=== PATIENT | male | born 1945 | race African-American/Black ===

== ENCOUNTER 2017-08-06 23:25 | Inpatient (IN) | payer OTHER, MEDICARE ==
[~2017-08-06] VITALS: Ht 190.5 cm; Wt 90.6 kg
[~2017-08-06 23:25] MED LIST: AML5T PO; ASP81EC PO; ATOR20TA50 PO; CARV6.2551 PO; CLON0.1T PO; FURO20TA3 PO; HYDR25TA35 PO; POT20T PO
[2017-08-06] MEDS ORDERED: cloNIDine HCL 0.1 MG TAB ONE (23:43)
[2017-08-06] MEDS ORDERED: cloNIDine HCL 0.1 MG TAB PO ONE (23:45)
[2017-08-06 23:59] LABS: Basophils # (auto) 0.1 uL; Basophils % (auto) 0.9 % (0.0-2.0); Eosinophils # (auto) 0 uL; Eosinophils % (auto) 0.5 % (0.0-7.0); Hematocrit 38.9 % (41.0-53.0); Hemoglobin 12.8 g/dL (13.5-17.5); Lymphocytes # (auto) 1.3 uL; Lymphocytes % (auto) 17.7 % (10.0-50.0); Mean Corpuscular Hemoglobin 29.3 pg (28.0-32.0); Mean Corpuscular Hgb Conc. 32.8 g/dL (32.0-36.0); Mean Corpuscular Volume 89.5 fL (80.0-100.0); Monocytes # (auto) 0.7 uL; Monocytes % (auto) 9.9 % (0.0-12.0); Neutrophils # (auto) 5.1 uL; Nucleated Red Blood Cells % 0.1 %; Platelet Count (auto) 181 10^3/uL (140-450); Red Blood Cells 4.35 10^6/uL (4.5-5.90); Red Cell Distribution Width 16.2 % (11.8-14.3); White Blood Cell 7.3 10^3/uL (4.4-10.8)
[2017-08-07] MEDS ORDERED: LABETALOL HCL 200 MG TAB PO ONE
[2017-08-07 00:15] LABS: Albumin 3.1 g/dL (3.4-5.0); Potassium 3.2 mmol/L (3.5-5.1)
[2017-08-07 00:17] LABS: BUN/Creatinine Ratio 17.1
[2017-08-07 00:22] LABS: Bilirubin, Total 1.5 mg/dL (0.2-1.0); Total Protein 6.3 g/dL (6.4-8.2)
[2017-08-07] MEDS ORDERED: HYDROcodone-ACET 10/325MG TAB PO ONE (01:45)
[2017-08-07] MEDS ORDERED: cloNIDine HCL 0.1 MG TAB PO ONE (02:00)
[2017-08-07 02:39] LABS: Urine Bacteria FEW /hpf (None Seen); Urine Blood Negative /uL (Negative); Urine Hyaline Cast FEW /lpf (0 - 2); Urine Specific Gravity 1.015 (1.001-1.035); Urine WBC <1 /hpf (0 - 3)
[2017-08-07] MEDS: NICARDIPINE 25MG/250ML BAG KIT 250 ML IV SCH ×3 (03:22→12:56)
[2017-08-07] MEDS ORDERED: POTASSIUM CHL 20 Meq TABLET PO ONE ×2 (05:00→13:15)
[2017-08-07] MEDS ORDERED: MORPHINE SULFATE 8mg/ml INJ SDV IV PRN ×2 (08:30→13:15)
[2017-08-07] MEDS ORDERED: ONDANSETRON HCL 4 MG/2 ML VIAL IV PRN (08:30)
[2017-08-07] MEDS ORDERED: HYDROcodone-ACET 5/325MG TAB PO PRN (08:30)
[2017-08-07] MEDS ORDERED: ACETAMINOPHEN 500 MG TAB PO PRN (08:30)
[2017-08-07] MEDS ORDERED: NITROGLYCERIN 0.4 MG SL TAB SL PRN (08:30)
[2017-08-07 08:59] LABS: Alcohol, Urine < 3.0 mg/dL (0-5); Amphetamine Screen, Urine NEGATIVE (NEGATIVE); Barbiturate Scree,Urine NEGATIVE (NEGATIVE); Benzodiazephine Screen, Urine NEGATIVE (NEGATIVE); Cannabinoid Screen, Urine POSITIVE (NEGATIVE); Cocaine Screen, Urine NEGATIVE (NEGATIVE); Opiate Scree,Urine NEGATIVE (NEGATIVE); Phencyclidine Screen, Urine NEGATIVE (NEGATIVE)
[2017-08-07 09:10] LABS: Basophils # (auto) 0.1 uL; Basophils % (auto) 0.8 % (0.0-2.0); Eosinophils # (auto) 0.1 uL; Eosinophils % (auto) 1.3 % (0.0-7.0); Hematocrit 38.5 % (41.0-53.0); Hemoglobin 12.9 g/dL (13.5-17.5); Lymphocytes # (auto) 1.5 uL; Lymphocytes % (auto) 20.8 % (10.0-50.0); Mean Corpuscular Hemoglobin 29.9 pg (28.0-32.0); Mean Corpuscular Hgb Conc. 33.6 g/dL (32.0-36.0); Mean Corpuscular Volume 88.9 fL (80.0-100.0); Monocytes # (auto) 0.9 uL; Monocytes % (auto) 12.2 % (0.0-12.0); Neutrophils # (auto) 4.5 uL; Neutrophils % (auto) 64.9 % (37.0-80.0); Platelet Count (auto) 186 10^3/uL (140-450); Red Blood Cells 4.33 10^6/uL (4.5-5.90); Red Cell Distribution Width 16.4 % (11.8-14.3)
[2017-08-07 09:23] LABS: INR 1.05 (0.9-1.15); Partial Thromboplastin Time 29.5 sec (23.78-33.04); Prothrombin Time 11.2 sec (9.27-12.13)
[2017-08-07] MEDS: CARVEDILOL 3.125 MG TAB PO SCH ×2 (09:28→22:06)
[2017-08-07] MEDS: cloNIDine HCL 0.1 MG TAB PO SCH ×3 (09:28→22:07)
[2017-08-07] MEDS: FUROSEMIDE 20 MG TAB PO SCH (09:28)
[2017-08-07 09:36] LABS: BUN/Creatinine Ratio 16.4; Calcium 7.8 mg/dL (8.5-10.1)
[2017-08-07] MEDS ORDERED: amLODIPine BESYLATE 5 MG TAB PO ONE (13:15)
[2017-08-07] MEDS: hydrALAZINE HCL 25 MG TAB PO SCH ×2 (13:31→22:06)
[2017-08-07] MEDS: cloNIDine HCL 0.1 MG TAB PO PRN (16:55)
[2017-08-07 19:00] VITALS: BP 175/103
[2017-08-07 20:00] VITALS: BP 175/103
[2017-08-07 22:00] VITALS: BP 165/60
[2017-08-07] MEDS: ATORVASTATIN 20 MG TAB PO SCH (22:05)
[2017-08-07 22:45] VITALS: BP 175/103
[2017-08-08 05:52] VITALS: BP 164/97
[2017-08-08] MEDS: hydrALAZINE HCL 25 MG TAB PO SCH ×3 (05:57→22:51)
[2017-08-08 06:36] LABS: Basophils # (auto) 0 uL; Basophils % (auto) 0.6 % (0.0-2.0); Eosinophils # (auto) 0.1 uL; Eosinophils % (auto) 1.1 % (0.0-7.0); Hematocrit 41.2 % (41.0-53.0); Hemoglobin 13.9 g/dL (13.5-17.5); Lymphocytes % (auto) 14.5 % (10.0-50.0); Mean Corpuscular Hgb Conc. 33.6 g/dL (32.0-36.0); Mean Corpuscular Volume 89.3 fL (80.0-100.0); Monocytes # (auto) 0.7 uL; Monocytes % (auto) 10.1 % (0.0-12.0); Neutrophils # (auto) 5.3 uL; Neutrophils % (auto) 73.7 % (37.0-80.0); Nucleated Red Blood Cells % 0.1 %; Platelet Count (auto) 209 10^3/uL (140-450); Red Blood Cells 4.62 10^6/uL (4.5-5.90); Red Cell Distribution Width 15.5 % (11.8-14.3); White Blood Cell 7.2 10^3/uL (4.4-10.8)
[2017-08-08 07:11] LABS: Potassium 3.8 mmol/L (3.5-5.1)
[2017-08-08 07:23] LABS: BUN/Creatinine Ratio 12.2; Calcium 8.3 mg/dL (8.5-10.1)
[2017-08-08 09:00] VITALS: BP 159/110
[2017-08-08] MEDS: POTASSIUM CHL 10 Meq TABLET PO SCH (10:39)
[2017-08-08] MEDS: FUROSEMIDE 20 MG TAB PO SCH (10:40)
[2017-08-08] MEDS: CARVEDILOL 3.125 MG TAB PO SCH ×2 (10:42→22:56)
[2017-08-08] MEDS: amLODIPine BESYLATE 5 MG TAB PO SCH (10:43)
[2017-08-08] MEDS: cloNIDine HCL 0.1 MG TAB PO SCH ×2 (10:45→22:50)
[2017-08-08 13:00] VITALS: BP 151/81
[2017-08-08 17:00] VITALS: BP 143/79
[2017-08-08 22:00] VITALS: BP 158/88
[2017-08-08] MEDS: ATORVASTATIN 20 MG TAB PO SCH (22:51)
[2017-08-09] VITALS (7 sets, daily range): BP systolic 139–193; BP diastolic 65–94
[2017-08-09] MEDS: hydrALAZINE HCL 25 MG TAB PO SCH ×3 (05:37→22:19)
[2017-08-09 07:08] LABS: INR 1.01 (0.9-1.15); Partial Thromboplastin Time 30.4 sec (23.78-33.04); Prothrombin Time 10.8 sec (9.27-12.13)
[2017-08-09] MEDS: POTASSIUM CHL 10 Meq TABLET PO SCH (09:36)
[2017-08-09] MEDS: amLODIPine BESYLATE 5 MG TAB PO SCH (09:37)
[2017-08-09] MEDS: FUROSEMIDE 20 MG TAB PO SCH (09:37)
[2017-08-09] MEDS: cloNIDine HCL 0.1 MG TAB PO SCH ×2 (09:40→22:23)
[2017-08-09] MEDS: CARVEDILOL 3.125 MG TAB PO SCH ×2 (09:40→22:20)
[2017-08-09] MEDS ORDERED: LIDOCAINE 1% (LOCAL ANESTH.) PF 5ml SDV ONE (11:27)
[2017-08-09] MEDS ORDERED: SUCCINYLCHOLINE CHLORIDE 20 MG/ML 10ML VIAL IV ONE (11:28)
[2017-08-09] MEDS ORDERED: ceFAZolin 1GM/100ML 50 ML IV ONE (11:38)
[2017-08-09] MEDS ORDERED: ETOMIDATE (2MG/ML) 20ML VIAL IV ONE (11:43)
[2017-08-09] MEDS ORDERED: MIDAZOLAM HCL 1MG/1ML-2 ML VIAL ONE (11:43)
[2017-08-09] MEDS ORDERED: ROCURONIUM 10MG/ML 10ML VIAL IV ONE (11:43)
[2017-08-09] MEDS ORDERED: fentaNYL CITRATE 100 MCG/2 ML VL ONE (12:04)
[2017-08-09] MEDS ORDERED: hydrALAZINE HCL 20 MG/ML VL ONE (12:05)
[2017-08-09] MEDS ORDERED: hydrALAZINE HCL 20 MG/ML VL IV PRN (12:15)
[2017-08-09] MEDS ORDERED: ONDANSETRON HCL 4 MG/2 ML VIAL IV ONE (12:15)
[2017-08-09] MEDS ORDERED: METOCLOPRAMIDE HCL 5MG/ml INJ 2ml VIAL IV ONE (12:15)
[2017-08-09] MEDS ORDERED: GLYCOPYRROLATE 0.2 MG/ML 1ML VIAL ONE (12:42)
[2017-08-09] MEDS ORDERED: NEOSTIGMINE 1 MG/ML INJ (10mg/10ML VIAL) ONE ×2 (12:42→12:43)
[2017-08-09] MEDS: cloNIDine HCL 0.1 MG TAB PO PRN (15:27)
[2017-08-09] MEDS ORDERED: HYDROcodone-ACET 10/325MG TAB PO PRN (18:00)
[2017-08-09] MEDS: ATORVASTATIN 20 MG TAB PO SCH (22:19)
[2017-08-09] MEDS: HYDROcodone-ACET 10/325MG TAB PO PRN (23:29)
[2017-08-10] MEDS: cloNIDine HCL 0.1 MG TAB PO PRN ×2 (04:18→17:56)
[2017-08-10] MEDS: HYDROcodone-ACET 10/325MG TAB PO PRN ×2 (04:19→21:41)
[2017-08-10 05:25] VITALS: BP 175/86
[2017-08-10 06:33] LABS: Basophils # (auto) 0 uL; Basophils % (auto) 0.4 % (0.0-2.0); Eosinophils # (auto) 0.1 uL; Eosinophils % (auto) 0.7 % (0.0-7.0); Hematocrit 42.3 % (41.0-53.0); Hemoglobin 14.3 g/dL (13.5-17.5); Lymphocytes # (auto) 0.7 uL; Lymphocytes % (auto) 8.3 % (10.0-50.0); Mean Corpuscular Hgb Conc. 33.7 g/dL (32.0-36.0); Mean Corpuscular Volume 89.1 fL (80.0-100.0); Monocytes # (auto) 1.5 uL; Monocytes % (auto) 16.2 % (0.0-12.0); Neutrophils # (auto) 6.7 uL; Neutrophils % (auto) 74.4 % (37.0-80.0); Nucleated Red Blood Cells % 0.1 %; Platelet Count (auto) 205 10^3/uL (140-450); Red Blood Cells 4.74 10^6/uL (4.5-5.90); Red Cell Distribution Width 15.7 % (11.8-14.3)
[2017-08-10] MEDS: hydrALAZINE HCL 25 MG TAB PO SCH ×3 (06:44→21:28)
[2017-08-10 06:45] LABS: BUN/Creatinine Ratio 15.3; Calcium 8.2 mg/dL (8.5-10.1); Potassium 3.2 mmol/L (3.5-5.1)
[2017-08-10 09:00] VITALS: BP 158/88
[2017-08-10] MEDS ORDERED: fentaNYL CITRATE 100 MCG/2 ML VL IV ONE (10:00)
[2017-08-10] MEDS: POTASSIUM CHL 10 Meq TABLET PO SCH (10:05)
[2017-08-10] MEDS: cloNIDine HCL 0.1 MG TAB PO SCH ×2 (10:06→21:28)
[2017-08-10] MEDS: amLODIPine BESYLATE 5 MG TAB PO SCH (10:07)
[2017-08-10] MEDS: CARVEDILOL 3.125 MG TAB PO SCH ×2 (10:07→21:29)
[2017-08-10] MEDS: FUROSEMIDE 20 MG TAB PO SCH (10:07)
[2017-08-10] MEDS ORDERED: POTASSIUM CHL 20 Meq TABLET PO ONE (10:30)
[2017-08-10 13:00] VITALS: BP 129/68
[2017-08-10 17:00] VITALS: BP 169/74
[2017-08-10] MEDS: ATORVASTATIN 20 MG TAB PO SCH (21:28)
[2017-08-10 22:36] VITALS: BP 153/87
[2017-08-11 04:56] VITALS: BP 166/83
[2017-08-11 05:41] LABS: Potassium 3.5 mmol/L (3.5-5.1)
[2017-08-11 05:43] LABS: BUN/Creatinine Ratio 15.8
[2017-08-11] MEDS: hydrALAZINE HCL 25 MG TAB PO SCH ×3 (05:53→21:50)
[2017-08-11 08:37] VITALS: BP 143/92
[2017-08-11] MEDS: POTASSIUM CHL 10 Meq TABLET PO SCH (10:07)
[2017-08-11] MEDS: FUROSEMIDE 20 MG TAB PO SCH (10:07)
[2017-08-11] MEDS: CARVEDILOL 3.125 MG TAB PO SCH ×2 (10:08→21:51)
[2017-08-11] MEDS: amLODIPine BESYLATE 5 MG TAB PO SCH (10:08)
[2017-08-11] MEDS: cloNIDine HCL 0.1 MG TAB PO SCH ×2 (10:09→21:50)
[2017-08-11 11:38] VITALS: BP 121/63
[2017-08-11 16:51] VITALS: BP 130/74
[2017-08-11 18:38] VITALS: BP 154/73
[2017-08-11] MEDS: ATORVASTATIN 20 MG TAB PO SCH (21:51)
[2017-08-11] MEDS: HYDROcodone-ACET 10/325MG TAB PO PRN (21:52)
[2017-08-11 22:00] VITALS: BP 143/82
[2017-08-12 04:45] VITALS: BP 143/90
[2017-08-12] MEDS: hydrALAZINE HCL 25 MG TAB PO SCH ×2 (06:02→14:08)
[2017-08-12] MEDS: POTASSIUM CHL 10 Meq TABLET PO SCH (10:33)
[2017-08-12] MEDS: FUROSEMIDE 20 MG TAB PO SCH (10:33)
[2017-08-12] MEDS: amLODIPine BESYLATE 5 MG TAB PO SCH (10:34)
[2017-08-12] MEDS: CARVEDILOL 3.125 MG TAB PO SCH (10:34)
[2017-08-12] MEDS: cloNIDine HCL 0.1 MG TAB PO SCH (10:35)
[2017-08-12 13:09] VITALS: BP 130/77
[2017-08-12] MEDS ORDERED: DOCUSATE SOD 100 MG CAP PO ONE (16:30)
[2017-08-12 17:48] VITALS: BP 117/62
[2017-08-12 17:50] VITALS: BP 117/62
== END 2017-08-12 21:10 | disposition home or self-care (01) | DRG 350 ==
LOC: ER 23:25 → EDBD 23:25 → TELE 23:26 → TELE-CENTR 08-07 17:44
PROVIDERS: ADMIT Nurse Practitioner Family; ATTEND Internal Medicine
PROC: 0YQ50ZZ Repair Right Inguinal Region, Open Approach (ICD-10-PCS; principal; 2017-08-09 11:53)
DX: K40.30 Unilateral inguinal hernia, with obstruction, without gangrene, not specified as recurrent (principal); I50.31 Acute diastolic (congestive) heart failure; I21.4 Non-ST elevation (NSTEMI) myocardial infarction; I13.0 Hypertensive heart and chronic kidney disease with heart failure and stage 1 through stage 4 chronic kidney disease, or unspecified chronic kidney disease; K21.9 Gastro-esophageal reflux disease without esophagitis; I25.10 Atherosclerotic heart disease of native coronary artery without angina pectoris; N43.3 Hydrocele, unspecified; E87.6 Hypokalemia; I11.0 Hypertensive heart disease with heart failure; E78.5 Hyperlipidemia, unspecified; N18.2 Chronic kidney disease, stage 2 (mild); Z79.82 Long term (current) use of aspirin; Z82.49 Family history of ischemic heart disease and other diseases of the circulatory system; Z79.899 Other long term (current) drug therapy; Z71.3 Dietary counseling and surveillance
CPT/HCPCS: 36415; 71045; 74176; 76870; 80048; 80053; 80307; 81001; 83880; 84484; 85025; 85610; 85730; 86850; 86900; 86901; 93005; 93306; 96365; 97116; 97163; J0330; J0690; J2250

== ENCOUNTER 2018-07-05 08:01 | Emergency (ER) | payer MEDICARE, OTHER ==
[~2018-07-05] VITALS: Ht 177.8 cm; Wt 77.1 kg
[~2018-07-05 08:01] MED LIST changes: +HYDR-4296 PO; -HYDR25TA35 PO
[2018-07-05] MEDS ORDERED: cloNIDine HCL 0.1 MG TAB PO ONE ×2 (08:45→10:00)
[2018-07-05 08:46] LABS: Basophils # (auto) 0.1 uL; Basophils % (auto) 1.1 % (0.0-2.0); Eosinophils # (auto) 0.1 uL; Eosinophils % (auto) 0.7 % (0.0-7.0); Hemoglobin 12.1 g/dL (13.5-17.5); Lymphocytes % (auto) 24.6 % (10.0-50.0); Mean Corpuscular Hemoglobin 30.4 pg (28.0-32.0); Mean Corpuscular Hgb Conc. 33.6 g/dL (32.0-36.0); Mean Corpuscular Volume 90.5 fL (80.0-100.0); Monocytes # (auto) 0.8 uL; Monocytes % (auto) 10.3 % (0.0-12.0); Neutrophils # (auto) 5.1 uL; Neutrophils % (auto) 63.3 % (37.0-80.0); Nucleated Red Blood Cells % 0.1 %; Platelet Count (auto) 224 10^3/uL (140-450); Red Blood Cells 3.98 10^6/uL (4.5-5.90); Red Cell Distribution Width 15.6 % (11.8-14.3)
[2018-07-05 09:02] LABS: Calcium 8.5 mg/dL (8.5-10.1)
[2018-07-05 09:10] LABS: BUN/Creatinine Ratio 18.3; Bilirubin, Total 0.7 mg/dL (0.2-1.0); Total Protein 6.9 g/dL (6.4-8.2)
[2018-07-05 12:26] VITALS: BP 208/99
== END 2018-07-05 13:51 | disposition home or self-care (01) ==
LOC: ER 08:01 → EDBD 08:01 → ER 13:51
DX: I16.0 Hypertensive urgency (principal); I11.0 Hypertensive heart disease with heart failure; I50.9 Heart failure, unspecified; Z79.82 Long term (current) use of aspirin; Z79.899 Other long term (current) drug therapy; Z86.73 Personal history of transient ischemic attack (TIA), and cerebral infarction without residual deficits
CPT/HCPCS: 36415; 80053; 84484; 85025; 93005

== ENCOUNTER 2018-08-31 16:43 | Inpatient (IN) | payer MEDICARE, OTHER ==
[~2018-08-31] VITALS: Ht 182.9 cm; Wt 98.0 kg
[2018-08-31] MEDS ORDERED: NITROGLYCERIN 0.4 MG SL TAB SL PRN (17:45)
[2018-08-31] MEDS ORDERED: MORPHINE SULFATE 4 MG/ML SYR/VIAL IV PRN (17:45)
[2018-08-31] MEDS ORDERED: cefTRIAXone 1GM/50ML D5W 50 ML IV ONE (17:45)
[2018-08-31] MEDS ORDERED: TEMAZEPAM 15 MG CAP PO PRN (17:45)
[2018-08-31] MEDS ORDERED: MORPHINE SULF INJ 2 MG/ML SYRINGE 1ML IV PRN (17:45)
[2018-08-31] MEDS ORDERED: ONDANSETRON HCL 4 MG/2 ML VIAL IV PRN (17:45)
[2018-08-31] MEDS ORDERED: ALBUTEROL SULF 2.5 MG/0.5ML(0.5%) NEB SOLN NEB PRN (17:45)
[2018-08-31] MEDS ORDERED: DOCUSATE SOD 100 MG CAP PO PRN (17:45)
[2018-08-31] MEDS ORDERED: ALUM & MAG HYDROX-SIMETH LIQ(MAALOX) 30 ML PO PRN (17:45)
[2018-08-31 18:22] LABS: Basophils # (auto) 0.1 uL; Basophils % (auto) 1.4 % (0.0-2.0); Eosinophils # (auto) 0.1 uL; Hematocrit 36.1 % (41.0-53.0); Hemoglobin 12.2 g/dL (13.5-17.5); Lymphocytes # (auto) 1.3 uL; Mean Corpuscular Hemoglobin 30.3 pg (28.0-32.0); Mean Corpuscular Hgb Conc. 33.8 g/dL (32.0-36.0); Mean Corpuscular Volume 89.7 fL (80.0-100.0); Monocytes % (auto) 12.3 % (0.0-12.0); Neutrophils # (auto) 5.7 uL; Neutrophils % (auto) 69.3 % (37.0-80.0); Platelet Count (auto) 238 10^3/uL (140-450); Red Blood Cells 4.02 10^6/uL (4.5-5.90); Red Cell Distribution Width 14.1 % (11.8-14.3); White Blood Cell 8.2 10^3/uL (4.4-10.8)
[2018-08-31 18:41] LABS: Albumin 2.8 g/dL (3.4-5.0); Calcium 8.6 mg/dL (8.5-10.1); Magnesium 2.2 mg/dL (1.6-2.6); Potassium 3.9 mmol/L (3.5-5.1)
[2018-08-31 18:44] LABS: Cholesterol 127 mg/dL (< 200); Triglycerides 74 mg/dL (< 150)
[2018-08-31 18:46] LABS: Bilirubin, Total 0.7 mg/dL (0.2-1.0); HDL Cholesterol 43 mg/dL (40-59); LDL Cholesterol 77 mg/dL (< 100); Total Protein 6.7 g/dL (6.4-8.2)
[2018-08-31] MEDS: SODIUM CHLORIDE 0.9% 1,000 ML IV SCH (19:06)
[2018-08-31 19:56] LABS: Urine Bacteria NONE SEEN /hpf (None Seen); Urine Blood 1+ /uL (Negative); Urine Specific Gravity 1.021 (1.001-1.035); Urine WBC 32 /hpf (0 - 3); Urine WBC Clumps PRESENT /hpf (None Seen)
[2018-08-31 20:18] VITALS: BP 165/101
[2018-08-31] MEDS: ATORVASTATIN 20 MG TAB PO SCH (22:12)
[2018-08-31] MEDS: CARVEDILOL 12.5 MG TAB PO SCH (22:12)
[2018-08-31] MEDS: cloNIDine HCL 0.1 MG TAB PO SCH (22:13)
[2018-08-31] MEDS: hydrALAZINE HCL 25 MG TAB PO SCH (22:13)
[2018-08-31] MEDS ORDERED: cloNIDine HCL 0.1 MG TAB PO ONE (22:30)
[2018-09-01] VITALS (9 sets, daily range): BP systolic 116–208; BP diastolic 61–108
--- NOTE | 2018-09-01 01:40 | NUR ---
Telemetry admit from ER JENNIFER HA admitted to Telemetry unit. Patient oriented to Kel Stinson, primary RN, unit, room, bed, and unit policies regarding patient care and visiting hours. Pt oriented to self only, reoriented to place, time and situation. Patient now on continuous telemetry monitoring, tele box # [id number] and telemetry reading on arrival to unit is SB 50s. Patient's vs taken and recorded, weighed by bedscale and encouraged to call if they need something, call light within reach. POC reviewed, unable to comprehend teachings. Side rails up x2, bed in lowest locked position, bed alarm on. Wound photos taken and wound documentation paper signed and placed in wc box, mrsa swab sent to lab. Continue care. Note:
--- NOTE | 2018-09-01 02:09 | NUR ---
CALLED AND SPOKE TO DR ARTHUR REGARDING ELEVATED BP 208/108, RECEIVED NEW ORDER FOR CLONIDINE 0.2MG PO X1, ORDER ENTERED, WILL CARRY OUT. CONTINUE CARE.
[2018-09-01] MEDS ORDERED: cloNIDine HCL 0.1 MG TAB PO ONE (03:00)
[2018-09-01] MEDS: hydrALAZINE HCL 25 MG TAB PO SCH ×3 (06:10→21:56)
--- NOTE | 2018-09-01 07:01 | NUR ---
PRN MN TX NOT INDICATED AT THIS TIME. PT SLEEPING COMFORTABLE. PT ON RA, 96% O2 SATS, HR 58 BPM, RR18 BPM, BS ARE CLEAR TO AUSCULTATION, SKIN IS DRY AND WARM TO THE TOUCH. NO SOB OR ANY OTHER RESPIRATORY DISTRESS NOTICED. WILL CONTINUE TO MONITOR PT.
--- NOTE | 2018-09-01 07:20 | NUR ---
Opening Shift Note Assumed care of patient, patient asleep. No S/S of distress/SOB or pain. Will continue to monitor for changes Q1hr and PRN.
[2018-09-01 09:34] LABS: Basophils # (auto) 0.1 uL; Basophils % (auto) 1.1 % (0.0-2.0); Eosinophils # (auto) 0 uL; Eosinophils % (auto) 0.4 % (0.0-7.0); Hematocrit 36.7 % (41.0-53.0); Hemoglobin 12.2 g/dL (13.5-17.5); Lymphocytes # (auto) 1.6 uL; Lymphocytes % (auto) 16.7 % (10.0-50.0); Mean Corpuscular Hemoglobin 30.5 pg (28.0-32.0); Mean Corpuscular Hgb Conc. 33.3 g/dL (32.0-36.0); Mean Corpuscular Volume 91.3 fL (80.0-100.0); Monocytes # (auto) 1.3 uL; Monocytes % (auto) 13.2 % (0.0-12.0); Neutrophils # (auto) 6.7 uL; Neutrophils % (auto) 68.6 % (37.0-80.0); Platelet Count (auto) 226 10^3/uL (140-450); Red Blood Cells 4.01 10^6/uL (4.5-5.90); Red Cell Distribution Width 14.1 % (11.8-14.3); White Blood Cell 9.8 10^3/uL (4.4-10.8)
[2018-09-01] MEDS: CARVEDILOL 12.5 MG TAB PO SCH ×2 (10:00→21:55)
[2018-09-01] MEDS: ASPirin-EC 81 mg tab PO SCH (10:22)
[2018-09-01] MEDS: cefTRIAXone 1GM/50ML D5W 50 ML IV SCH (10:22)
[2018-09-01] MEDS: POTASSIUM CHL 20 Meq TABLET PO SCH (10:22)
[2018-09-01] MEDS: cloNIDine HCL 0.1 MG TAB PO SCH ×2 (10:22→21:54)
[2018-09-01] MEDS: amLODIPine BESYLATE 5 MG TAB PO SCH (10:23)
[2018-09-01] MEDS: LISINOPRIL 20 MG TAB PO SCH (10:23)
[2018-09-01] MEDS: ENOXAPARIN SOD 40 MG/0.4 ML SYRINGE SC SCH (10:23)
[2018-09-01] MEDS: SODIUM CHLORIDE 0.9% 1,000 ML IV SCH (10:24)
--- NOTE | 2018-09-01 12:30 | NUR ---
WOUND CARE NOTE: IN TO SEE PATIENT AT THIS TIME PER WOUND CARE CONSULT REQUEST. PATIENT WAS NOTED TO HAVE SKIN INTEGRITY ISSUES UPON ADMIT. WOUND PHOTOS TAKEN AT THAT TIME BY BEDSIDE NURSE FOR REFERENCE. PATIENT ADMITTED TO [facility] WITH DIAGNOSIS OF ALOC, HYPOVOLEMIA. PATIENT HAS CURRENT JEFFERSON SCORE OF 12. PATIENT IS MAX ASSIST FOR ALL OF HIS ADL'S, INCLUDING TURNING/REPOSITIONING. SPECIALTY AIR MATTRESS ORDERED. PATIENT TO BE PLACED, PENDING DELIVERY BY [facility]. PATIENT HAS MULTIPLE INTACT SCARS TO SACRUM. 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 MOISTURE BARRIER CREAM AND OPTIFOAM GENTLE SACRAL DRESSING APPLIED. BILATERAL HEELS HAS INTACT ESCHAR HEELS THAT ARE CHRONIC. NICHO FOAM BOOTS APPLIED. RECOMMEND: FREQUENT TURN SCHEDULE Q 2 HOURS, PRN CONDITION PERMITS, WITH PRESSURE REDISTRIBUTION USING PILLOWS/WEDGES, BID/PRN APPLICATION WITH MOISTURE BARRIER CREAM, OPTIFOAM GENTLE SACRAL DRESSING, SPECIALTY AIR MATTRESS, NICHO FOAM BOOTS, DIETARY CONSULT, SKIN/WOUND CARE PLAN, CONTINUED MONITORING BY WOUND CARE TEAM. Addendum: 09/01/18 at 1850 by Magdalena Callejas RN Amended: Links added.
--- NOTE | 2018-09-01 14:00 | NUR ---
Pt found with food from lunch still in mouth. Food suctioned out and Dr. Soriano notified. Orders for full liquid diet and swallow eval.
[2018-09-01 14:40] LABS: Albumin 2.4 g/dL (3.4-5.0); Calcium 8.4 mg/dL (8.5-10.1); Potassium 3.9 mmol/L (3.5-5.1)
[2018-09-01 14:43] LABS: BUN/Creatinine Ratio 21.4; Bilirubin, Total 0.8 mg/dL (0.2-1.0); Total Protein 6.2 g/dL (6.4-8.2)
[2018-09-01] MEDS: cloNIDine HCL 0.1 MG TAB PO PRN (17:52)
--- NOTE | 2018-09-01 19:03 | NUR ---
Respiratory note: ASSESSED PT FOR PRN TX. PT IS CURRENTLY ON ROOM AIR: HR 68, RR 18, SPO2 94%. MED NEB TX NOT INDICATED AT THIS TIME. PT SHOWS NO S/S OR DISTRESS. INFORMED PT IF SOB TO CONTACT RESPIRATORY FOR BREATHING TX. WILL CONTINUE TO MONITOR.
--- NOTE | 2018-09-01 20:00 | NUR ---
Opening Shift Note Assumed care of patient, awake and alert. No S/S of distress/SOB or pain. Instructed on POC and to call for assist PRN, will continue to monitor for changes Q1hr and PRN. SCDs in place. Bed in low position. Call light in reach. Alonzo Catheter intact draining to gravity clear yellow urine.
[2018-09-01] MEDS: ATORVASTATIN 20 MG TAB PO SCH (21:52)
--- NOTE | 2018-09-01 23:31 | NUR ---
Patient transferred to Air mattress delivered.
[2018-09-02] MEDS: SODIUM CHLORIDE 0.9% 1,000 ML IV SCH (03:26)
[2018-09-02 05:00] VITALS: BP 161/98
[2018-09-02] MEDS: hydrALAZINE HCL 25 MG TAB PO SCH ×2 (06:12→13:20)
[2018-09-02] MEDS: cloNIDine HCL 0.1 MG TAB PO PRN (06:16)
--- NOTE | 2018-09-02 07:20 | NUR ---
Opening Shift Note Assumed care of patient, awake and alert and oriented X 1. No S/S of distress/SOB or pain. Will continue to monitor for changes Q1hr and PRN.
[2018-09-02 08:00] VITALS: BP 163/93
[2018-09-02 08:26] VITALS: BP 163/93
[2018-09-02] MEDS: amLODIPine BESYLATE 5 MG TAB PO SCH (09:31)
[2018-09-02] MEDS: ASPirin-EC 81 mg tab PO SCH (09:31)
[2018-09-02] MEDS: cefTRIAXone 1GM/50ML D5W 50 ML IV SCH (09:31)
[2018-09-02] MEDS: POTASSIUM CHL 20 Meq TABLET PO SCH (09:32)
[2018-09-02] MEDS: CARVEDILOL 12.5 MG TAB PO SCH ×2 (09:32→21:58)
[2018-09-02] MEDS: cloNIDine HCL 0.1 MG TAB PO SCH ×2 (09:33→21:59)
[2018-09-02] MEDS: ENOXAPARIN SOD 40 MG/0.4 ML SYRINGE SC SCH (09:33)
[2018-09-02] MEDS: LISINOPRIL 20 MG TAB PO SCH ×2 (09:33→20:26)
--- NOTE | 2018-09-02 11:18 | NUR ---
SWALLOW EVALUATED. NURSING REPORTS SOME POCKETING DURING MEAL. PATIENT ABLE TO TOLERATE PUREE DIET TEXTURE WITH THIN LIQUIDS WITH NO OVERT SIGNS OR SYMPTOMS OF ASPIRATION. PATIENT HAS OWN LOWER TEETH. NURSING NOTIFIED.
[2018-09-02 13:00] VITALS: BP 142/84
--- NOTE | 2018-09-02 14:14 | NUR ---
NUTRITION CONSULT/ASSESSMENT NOTES Please refer to link notes of nutrition screen form filed under the intervention section of the plan of care for further details. Est. Needs: 2100 kcal to 2450 kcal (30-35 kcal/kgBW), 70 gms to 98 gms pro (1.0-1.4 gms/kgBW d/t severe hypoalbuminemia, wound healing). Will continue to monitor pertinent labs and reassess nutrient need prn Thank you for this consult. Addendum: 09/02/18 at [address] Amended: Links added.
[2018-09-02 17:06] VITALS: BP 158/89
--- NOTE | 2018-09-02 18:18 | NUR ---
Pharmacy recommendation Notified Dr. Soriano of pharmacy recommendation for antibiotics. MD reports he will review.
--- NOTE | 2018-09-02 19:40 | NUR ---
OPENING SHIFT NOTE RECEIVED REPORT FROM DAYSHIFT RN. PATIENT RESTING COMFORTABLY IN BED WITH EYES CLOSED. NO S/S OF DISTRESS OR SOB. NO PAIN NOTED OR REPORTED AT THIS TIME. PATIENT ALERT TO SELF, BEDREST ON AIR MATTRESS. UPDATED PATIENT ON POC, VERBALIZED UNDERSTANDING. BED LOCKED IN LOW POSITION, CALL LIGHT WITHIN REACH. WILL CONTINUE TO MONITOR PATIENT Q1HR AND PRN.
--- NOTE | 2018-09-02 19:51 | NUR ---
ASSESSED PT @ THIS TIME FOR PRN MED NEB TX. PT IS RESTING COMFORTABLY IN BED. HE STATES HIS BREATHING IS DOING FINE. CURRENTLY ON R/A SPO2 97%, HR 59, RR 18 AND BS ARE DIMINISHED T/O. NO DISTRESS NOTED. HE IS AWARE TO CALL IF HE FEELS SOB.
[2018-09-02] MEDS ORDERED: AZITHROMYCIN 200 MG/5 ML ORAL SUSP PO ONE (20:00)
[2018-09-02] MEDS: D5W/SOD CHL 0.45%/KCL 20MEQ 1,000 ML IV SCH (20:23)
[2018-09-02] MEDS: ATORVASTATIN 20 MG TAB PO SCH (21:57)
[2018-09-02 22:00] VITALS: BP 163/94
[2018-09-03 05:00] VITALS: BP 168/94
[2018-09-03] MEDS: amLODIPine BESYLATE 5 MG TAB PO SCH ×2 (06:39→17:57)
[2018-09-03] MEDS: LISINOPRIL 20 MG TAB PO SCH ×2 (06:40→17:56)
[2018-09-03 06:57] LABS: Basophils # (auto) 0.1 uL; Basophils % (auto) 0.8 % (0.0-2.0); Eosinophils # (auto) 0.1 uL; Eosinophils % (auto) 0.9 % (0.0-7.0); Hematocrit 36.2 % (41.0-53.0); Hemoglobin 12.1 g/dL (13.5-17.5); Lymphocytes # (auto) 1.5 uL; Lymphocytes % (auto) 19.8 % (10.0-50.0); Mean Corpuscular Hemoglobin 30.5 pg (28.0-32.0); Mean Corpuscular Hgb Conc. 33.4 g/dL (32.0-36.0); Mean Corpuscular Volume 91.4 fL (80.0-100.0); Monocytes # (auto) 0.9 uL; Monocytes % (auto) 11.8 % (0.0-12.0); Neutrophils # (auto) 5.2 uL; Neutrophils % (auto) 66.7 % (37.0-80.0); Nucleated Red Blood Cells % 0.1 %; Platelet Count (auto) 207 10^3/uL (140-450); Red Blood Cells 3.97 10^6/uL (4.5-5.90); Red Cell Distribution Width 13.9 % (11.8-14.3); White Blood Cell 7.8 10^3/uL (4.4-10.8)
[2018-09-03 08:00] VITALS: BP 177/98
[2018-09-03 08:23] VITALS: BP 177/98
[2018-09-03] MEDS: cefTRIAXone 1GM/50ML D5W 50 ML IV SCH (09:35)
[2018-09-03] MEDS: ASPirin-EC 81 mg tab PO SCH (09:35)
[2018-09-03] MEDS: ENOXAPARIN SOD 40 MG/0.4 ML SYRINGE SC SCH (09:35)
[2018-09-03] MEDS: cloNIDine HCL 0.1 MG TAB PO SCH ×2 (09:36→21:55)
[2018-09-03] MEDS: CARVEDILOL 12.5 MG TAB PO SCH ×2 (09:36→21:56)
[2018-09-03] MEDS: POTASSIUM CHL 20 Meq TABLET PO SCH (09:36)
[2018-09-03] MEDS ORDERED: AZITHROMYCIN 200 MG/5 ML ORAL SUSP PO ONE ×2 (10:00)
[2018-09-03 12:00] VITALS: BP 90/41
--- NOTE | 2018-09-03 13:30 | NUR ---
Respiratory note: PT ASSESSED FOR PRN MEDNEB TX. NO RESPIRATORY DISTRESS NOTED. SPO2 98% ON RA HR 67 RR 14 B/S CLEAR-DIMINISHED . PT AWARE TO HAVE RT PAGED IF THEY BECOME SOB.
[2018-09-03 17:00] VITALS: BP 173/86
[2018-09-03] MEDS: D5W/SOD CHL 0.45%/KCL 20MEQ 1,000 ML IV SCH (17:57)
--- NOTE | 2018-09-03 19:35 | NUR ---
OPENING SHIFT NOTE RECEIVED REPORT FROM DAYSHIFT RN. PATIENT RESTING COMFORTABLY IN BED WITH EYES CLOSED. NO S/S OF DISTRESS OR SOB. NO PAIN NOTED OR REPORTED AT THIS TIME. PATIENT ALERT TO SELF, BEDREST ON AIR MATTRESS. UPDATED PATIENT ON POC, REINFORCEMENT NEEDED. BED LOCKED IN LOW POSITION, CALL LIGHT WITHIN REACH. WILL CONTINUE TO MONITOR PATIENT Q1HR AND PRN.
[2018-09-03 21:43] VITALS: BP 149/96
[2018-09-03] MEDS: ATORVASTATIN 20 MG TAB PO SCH (21:56)
[2018-09-04] VITALS (7 sets, daily range): BP systolic 111–189; BP diastolic 59–106
[2018-09-04] MEDS ORDERED: MORPHINE SULFATE 4 MG/ML SYR/VIAL IV PRN (02:30)
[2018-09-04] MEDS ORDERED: MORPHINE SULF INJ 2 MG/ML SYRINGE 1ML IV PRN (02:45)
[2018-09-04] MEDS: cloNIDine HCL 0.1 MG TAB PO PRN (04:50)
[2018-09-04] MEDS: D5W/SOD CHL 0.45%/KCL 20MEQ 1,000 ML IV SCH ×2 (06:30→17:34)
[2018-09-04] MEDS: amLODIPine BESYLATE 5 MG TAB PO SCH ×2 (06:47→17:34)
[2018-09-04] MEDS: LISINOPRIL 20 MG TAB PO SCH ×2 (06:47→17:33)
[2018-09-04 06:58] LABS: Anion Gap 10 (5-15); Blood Urea Nitrogen 9 mg/dL (7-18); Calcium 8.1 mg/dL (8.5-10.1); Carbon Dioxide 22 mmol/L (21-32); Chloride 110 mmol/L (98-107); Glucose 86 mg/dL (74-106); Potassium 3.8 mmol/L (3.5-5.1); Sodium 142 mmol/L (136-145)
[2018-09-04 07:01] LABS: BUN/Creatinine Ratio 14.1; GFR African American 158 mL/min; GFR Non-African American 131 mL/min
[2018-09-04] MEDS: cefTRIAXone 1GM/50ML D5W 50 ML IV SCH (09:42)
[2018-09-04] MEDS: ASPirin-EC 81 mg tab PO SCH (09:43)
[2018-09-04] MEDS: ENOXAPARIN SOD 40 MG/0.4 ML SYRINGE SC SCH (09:43)
[2018-09-04] MEDS: POTASSIUM CHL 20 Meq TABLET PO SCH (09:43)
[2018-09-04] MEDS: CARVEDILOL 12.5 MG TAB PO SCH ×2 (09:44→21:53)
[2018-09-04] MEDS: cloNIDine HCL 0.1 MG TAB PO SCH ×2 (09:44→21:52)
[2018-09-04 15:17] LABS: Albumin 2.3 g/dL (3.4-5.0)
[2018-09-04 15:20] LABS: BUN/Creatinine Ratio 14.5; Bilirubin, Total 0.4 mg/dL (0.2-1.0)
--- NOTE | 2018-09-04 16:08 | NUR ---
APS Chiquis Johnson ph [phone] called and spoke to me thinking I was SS. Informed her I have not seen pt and that SS was Sudha Dunn and could be reached at ext [phone].
--- NOTE | 2018-09-04 16:48 | NUR ---
ASSESSED PT FOR PRN MED NEB TX, PT IN NO RESPIRATORY DISTRESS. HR 58 ON RA WITH SPO2 58% WITH DIMINISH BS. NO TX NEEDED AT THIS TIME. WILL CONTINUE TO MONITOR PT.
--- NOTE | 2018-09-04 18:47 | NUR ---
PRN MED NEB ASSESSMENT. PT DENIES SOB. NO DISTRESS NOTED AT THIS TIME. RA POX 96% HR 64 RR 16. BS CLEAR AND DIMINISHED. TX NOT GIVEN.
--- NOTE | 2018-09-04 19:30 | NUR ---
OPENING SHIFT NOTE RECEIVED REPORT FROM DAYSHIFT RN. PATIENT RESTING COMFORTABLY IN BED WITH EYES CLOSED. NO S/S OF DISTRESS OR SOB. NO PAIN NOTED OR REPORTED AT THIS TIME. PATIENT ALERT TO SELF AND PLACE, BEDREST ON AIR MATTRESS. UPDATED PATIENT ON POC, REINFORCEMENT NEEDED. BED LOCKED IN LOW POSITION, CALL LIGHT WITHIN REACH. WILL CONTINUE TO MONITOR PATIENT Q1HR AND PRN.
--- NOTE | 2018-09-04 21:15 | NUR ---
CALL FROM RADHA INFORMED PRIMARY RN OF POLICE ARRIVING AT HOME TO INSPECT CURRENT LIVING SITUATION. PER SHE STATES "THE POLICE JUST LEFT AND CHECKED OUT THE WHOLE HOUSE AND SAID EVERYTHING WAS GOOD. I HAVE ALL THE SUPPLIES I NEED FOR MY 'S CARE. I FEED HIM, BATHE HIM, CLEAN HIM, AND TAKE CARE OF HIM EVERYDAY. I HAVE EVERYTHING I NEED FOR HIM TO COME HOME SO I DO NOT WANT HIM TO GO TO A NURSING FACILITY." WILL CONTINUE TO MONITOR PATIENT.
[2018-09-04] MEDS: ATORVASTATIN 20 MG TAB PO SCH (21:53)
[2018-09-05 05:00] VITALS: BP 175/91
[2018-09-05] MEDS: amLODIPine BESYLATE 5 MG TAB PO SCH ×2 (06:20→17:37)
[2018-09-05] MEDS: LISINOPRIL 20 MG TAB PO SCH ×2 (06:20→17:38)
[2018-09-05 08:21] VITALS: BP 175/91
[2018-09-05 08:41] VITALS: BP 154/83
[2018-09-05] MEDS: POTASSIUM CHL 20 Meq TABLET PO SCH (09:32)
[2018-09-05] MEDS: cefTRIAXone 1GM/50ML D5W 50 ML IV SCH (09:32)
[2018-09-05] MEDS: ASPirin-EC 81 mg tab PO SCH (09:33)
[2018-09-05] MEDS: CARVEDILOL 12.5 MG TAB PO SCH ×2 (09:33→21:55)
[2018-09-05] MEDS: cloNIDine HCL 0.1 MG TAB PO SCH ×2 (09:34→21:54)
[2018-09-05] MEDS: D5W/SOD CHL 0.45%/KCL 20MEQ 1,000 ML IV SCH (09:37)
[2018-09-05] MEDS: ENOXAPARIN SOD 40 MG/0.4 ML SYRINGE SC SCH (09:56)
--- NOTE | 2018-09-05 10:21 | NUR ---
re-assessment APS social studies teacher Aliza Johnson has not reached out to me via telephone nor in person regarding this patient. Addendum: 09/06/18 at 1624 by Sudha MCBRIDE Amended: Links added.
--- NOTE | 2018-09-05 11:24 | NUR ---
Nutrition Follow-up Notes Wt.: 85.0 kg Pt was sleeping with no family by beside. per records pt with improving PNA and ALOC. pt with no distress noted per nursing. pt is currently on cardiac puree diet with adequate PO of 75% x 2 days per RN doc Est. Needs: 2100 kcal to 2450 kcal (30-35 kcal/kgBW), 70 gms to 98 gms pro (1.0-1.4 gms/kgBW d/t severe hypoalbuminemia, wound healing). Will continue to monitor pertinent labs and reassess nutrient need prn Labs: GLU 108 H, ALB 2.3 L, CA 8.0 L. Skin: Kit scale 17, mod risk pressure ulcer heels per RN doc. refer to notes for details GI: Pt had 1 BM on 08/05 per human services instructor. PES: Altered nutrition related lab values r/t current/chronic medical condition aeb hyperchloremia, low LFTs, hypocalcemia and severe hypoalbuminemia Increased nutrient needs r/t acute/chronic medical condition aeb 86% IBW, BMI 20.8 kg/m2, decreased muscle mass, severe hypoalbuminemia, <75% ave. consumed meals Will continue to monitor PO intake, skin status, pertinent labs and weight trend. F/u in 3-5 days. Rec.: 1.) Consider Ensure Enlive 1 carton TID. 2.) If Albumin level continues trending down, consider Prostat 1 pkt BID. 3.) Consider daily MVI with minerals and Asc acid 500 mgs BID. 4.) Consider close supervision and feeding assistance prn during meals5.) Refer to RD for further nutrition education and weight monitoring upon discharged. 6.) Continue current plan of care.
[2018-09-05 12:35] VITALS: BP 122/78
[2018-09-05 17:09] VITALS: BP 160/97
--- NOTE | 2018-09-05 19:20 | NUR ---
Opening Shift Note Assumed care of patient, awake and alert. No S/S of distress/SOB or pain. Instructed on POC and to call for assist PRN. Bed in lowest locked position, call light within reach, side rails up x2, fall precautions in place. Will continue to monitor for changes Q1hr and PRN.
--- NOTE | 2018-09-05 19:25 | NUR ---
Respiratory note: AT BEDSIDE TO ASSESS FOR PRN TX, NO S/S OF DISTRESS NOTED, PT STATES HIS BREATHING IS FINE. BS ARE DIMINISHED T/O, NO TX INDICATED AT THIS TIME. WILL CONTINUE TO MONITOR NEEDED.
[2018-09-05] MEDS: ATORVASTATIN 20 MG TAB PO SCH (21:55)
[2018-09-05 22:00] VITALS: BP 146/96
[2018-09-06 04:50] VITALS: BP 190/93
[2018-09-06] MEDS: D5W/SOD CHL 0.45%/KCL 20MEQ 1,000 ML IV SCH ×2 (04:58→18:23)
[2018-09-06] MEDS ORDERED: cloNIDine HCL 0.1 MG TAB PO PRN (05:00)
[2018-09-06] MEDS: amLODIPine BESYLATE 5 MG TAB PO SCH ×2 (06:43→17:00)
[2018-09-06] MEDS: LISINOPRIL 20 MG TAB PO SCH ×2 (06:43→17:00)
[2018-09-06 08:40] VITALS: BP 154/85
--- NOTE | 2018-09-06 09:37 | NUR ---
Respiratory note: ASSESSED PATIENT FOR PRN BREATHING TX. NO TX WAS GIVEN AT THIS TIME. PATIENT WAS AWAKE AND ALERT. NO RESPIRATORY DISTRESS NOTED OR STATED. PATIENT IS ON ROOM AIR, SPO2 97%, HR 73, RR 16. PATIENT IS WAS NOTIFIED TO HAVE RT PAGED IF BREATHING TX IS NEEDED. WILL CONTINUE TO MONITOR.
[2018-09-06] MEDS: ENOXAPARIN SOD 40 MG/0.4 ML SYRINGE SC SCH (10:00)
[2018-09-06] MEDS: cefTRIAXone 1GM/50ML D5W 50 ML IV SCH (10:15)
[2018-09-06] MEDS: ASPirin-EC 81 mg tab PO SCH (10:16)
[2018-09-06] MEDS: CARVEDILOL 12.5 MG TAB PO SCH ×2 (10:16→21:18)
[2018-09-06] MEDS: cloNIDine HCL 0.1 MG TAB PO SCH ×2 (10:16→21:18)
[2018-09-06] MEDS: POTASSIUM CHL 20 Meq TABLET PO SCH (10:17)
--- NOTE | 2018-09-06 12:19 | NUR ---
re-assessment Per consult refer patient to [facility] for IV antibiotics x 1 week. Per patients Christen she prefers to bring patient home on discharge. I have informed Sherine case investigator that patient needs a home IV ABX order. I will call Christen once we have order and know co-pay amounts. Christen verbalized understanding. Addendum: 09/06/18 at 1624 by Sudha Dunn Amended: Links added.
[2018-09-06 12:23] VITALS: BP 118/66
--- NOTE | 2018-09-06 12:42 | NUR ---
paged Dr Soriano for home abx order so I can fax to infusion companies to see what their co pay is
--- NOTE | 2018-09-06 13:41 | NUR ---
attempted to contact primary RN, however she is busy. Want her to speak to Dr. Koo
--- NOTE | 2018-09-06 13:42 | NUR ---
continuation of previous note. RN busy and if Dr. Soriano comes on unit, want RN to ask MD if he can write order for home abx. I have not heard back from Dr. Soriano as of yet from previous page
--- NOTE | 2018-09-06 15:47 | NUR ---
I have not heard back from Dr. Soriano as of yet
[2018-09-06 16:51] VITALS: BP 158/102
--- NOTE | 2018-09-06 18:55 | NUR ---
PHONE CALL TO HAD A [address] ARTHUR, MYSELF, RADHA. DISCUSSED THE PATIENT'S CONDITION AND HOW HE NEEDS ADEQUATE CARE. THE UNDERSTANDS THAT THE PATIENT MUST BE CHANGED REGULARLY AND FED ADEQUATELY FOR THE PATIENT TO MAINTAIN ADEQUATE HEALTH. THE DOCTOR WILL BE DISCHARGING THE PATIENT AND FOLLOW HIS CARE TO ASSESS IF THE PATIENT IS BEING CARED FOR ADEQUATELY.
--- NOTE | 2018-09-06 19:30 | NUR ---
assumed care of pt. upon entering room pt eyes closed, breathing even and unlabored. pt on room air with no distress noted. pt has quinonez in place. sitter at bedside. will return to update pt on plan of care. discharge order placed. spoke with on phone, stated son would be picking up pt at approx 2100. call light in reach will round on pt q1hr and prn.
[2018-09-06] MEDS: ATORVASTATIN 20 MG TAB PO SCH (21:19)
--- NOTE | 2018-09-06 22:30 | NUR ---
IV and quinonez discontinued. no issues noted. pt urinated and was cleaned prior to dc with family member. stable at time of dc.
== END 2018-09-06 22:30 | disposition home or self-care (01) | DRG 91 ==
LOC: EDBD 16:43 → EDUNIT# 16:43 → ER 16:47 → TELE 16:48 → TELE-WESTW 09-01 01:38
PROVIDERS: ADMIT Specialist; ATTEND Specialist
DX: G92 Toxic encephalopathy (principal); J18.1 Lobar pneumonia, unspecified organism; N39.0 Urinary tract infection, site not specified; E46 Unspecified protein-calorie malnutrition; E87.1 Hypo-osmolality and hyponatremia; J44.0 Chronic obstructive pulmonary disease with (acute) lower respiratory infection; E86.1 Hypovolemia; I25.10 Atherosclerotic heart disease of native coronary artery without angina pectoris; I11.0 Hypertensive heart disease with heart failure; I50.9 Heart failure, unspecified; I08.0 Rheumatic disorders of both mitral and aortic valves; I70.0 Atherosclerosis of aorta; F32.9 Major depressive disorder, single episode, unspecified; E78.00 Pure hypercholesterolemia, unspecified; M17.0 Bilateral primary osteoarthritis of knee; F03.90 Unspecified dementia, unspecified severity, without behavioral disturbance, psychotic disturbance, mood disturbance, and anxiety; I25.5 Ischemic cardiomyopathy; I69.320 Aphasia following cerebral infarction; Z82.49 Family history of ischemic heart disease and other diseases of the circulatory system; Z87.440 Personal history of urinary (tract) infections; Z87.891 Personal history of nicotine dependence; Z68.29 Body mass index [BMI] 29.0-29.9, adult
CPT/HCPCS: 36415; 51702; 71045; 80048; 80053; 80061; 81001; 83605; 83735; 83880; 84484; 85025; 87040; 87081; 87086; 92610; 93005; 93306; 96365; G0378; J0696

== ENCOUNTER 2018-09-19 19:24 | Inpatient (IN) | payer OTHER, MEDICARE ==
[~2018-09-19] VITALS: Ht 182.9 cm; Wt 67.4 kg
[2018-09-19 20:10] LABS: Basophils # (auto) 0 uL; Basophils % (auto) 0.4 % (0.0-2.0); Eosinophils # (auto) 0.1 uL; Eosinophils % (auto) 0.6 % (0.0-7.0); Hematocrit 34.2 % (41.0-53.0); Hemoglobin 11.3 g/dL (13.5-17.5); Lymphocytes # (auto) 1.7 uL; Lymphocytes % (auto) 15.6 % (10.0-50.0); Mean Corpuscular Hemoglobin 29.1 pg (28.0-32.0); Mean Corpuscular Volume 88.2 fL (80.0-100.0); Monocytes % (auto) 9.6 % (0.0-12.0); Neutrophils % (auto) 73.8 % (37.0-80.0); Platelet Count (auto) 286 10^3/uL (140-450); Red Blood Cells 3.87 10^6/uL (4.5-5.90); Red Cell Distribution Width 13.9 % (11.8-14.3); White Blood Cell 10.8 10^3/uL (4.4-10.8)
[2018-09-19 20:31] LABS: Alanine Aminotransferase 19 U/L (16-61); Albumin 2.2 g/dL (3.4-5.0); Anion Gap 10 (5-15); Aspartate Aminotransferase 36 U/L (15-37); BUN/Creatinine Ratio 23.4; Blood Urea Nitrogen 22 mg/dL (7-18); Calcium 7.9 mg/dL (8.5-10.1); Carbon Dioxide 24 mmol/L (21-32); Chloride 112 mmol/L (98-107); GFR African American 101 mL/min; GFR Non-African American 84 mL/min; Glucose 117 mg/dL (74-106); Potassium 3.5 mmol/L (3.5-5.1); Sodium 146 mmol/L (136-145)
[2018-09-19 20:33] LABS: Alkaline Phosphatase 80 U/L (45-117); Bilirubin, Total 0.9 mg/dL (0.2-1.0); Total Protein 6.3 g/dL (6.4-8.2)
[2018-09-19] MEDS ORDERED: SODIUM CHLORIDE 0.9% 500 ML IV ONE (23:30)
[2018-09-20 04:57] LABS: Urine WBC None Seen /hpf (0 - 3)
[2018-09-20 05:13] LABS: Urine Bacteria NONE SEEN /hpf (None Seen); Urine Blood 2+ /uL (Negative); Urine Specific Gravity 1.022 (1.001-1.035)
[2018-09-20] MEDS ORDERED: ONDANSETRON HCL 4 MG/2 ML VIAL IV PRN (06:30)
[2018-09-20] MEDS ORDERED: ACETAMINOPHEN 325 MG TAB PO PRN (06:30)
[2018-09-20 07:15] LABS: Basophils # (auto) 0.1 uL; Basophils % (auto) 0.9 % (0.0-2.0); Eosinophils # (auto) 0.1 uL; Eosinophils % (auto) 0.5 % (0.0-7.0); Hematocrit 36.6 % (41.0-53.0); Lymphocytes # (auto) 1.5 uL; Lymphocytes % (auto) 11.3 % (10.0-50.0); Mean Corpuscular Hemoglobin 29.3 pg (28.0-32.0); Mean Corpuscular Hgb Conc. 32.8 g/dL (32.0-36.0); Mean Corpuscular Volume 89.1 fL (80.0-100.0); Monocytes # (auto) 1.1 uL; Monocytes % (auto) 8.9 % (0.0-12.0); Neutrophils % (auto) 78.4 % (37.0-80.0); Platelet Count (auto) 279 10^3/uL (140-450); Red Blood Cells 4.11 10^6/uL (4.5-5.90); Red Cell Distribution Width 14.2 % (11.8-14.3); White Blood Cell 12.8 10^3/uL (4.4-10.8)
--- NOTE | 2018-09-20 07:20 | NUR ---
Telemetry admit from ER DILCIAJENNIFER admitted to Telemetry unit after SBAR received. Patient oriented to RADHA york RN, unit, room, bed, and unit policies regarding patient care and visiting hours. The patient is oriented x1, he has no signs or symptoms of distress. The patient is lethargic and unable to answer questions. The patient has wounds to the sacrum and heels, bilaterally. Will take pictures and place wound consult. Patient now on continuous telemetry monitoring, tele box #[id number] and telemetry reading on arrival to unit is sinus rhythm in the 70's. Patient weighed by bedscale and encouraged to call if they need something. Educated the patient on POC and use of the call light. All questions and concerns addressed, patient verbalized understanding, but will need frequent reorientation and education. Patient's room is close to nurses station, bed alarm on, call light within reach and bed in the lowest, locked position. Will round hourly and continue to monitor.
[2018-09-20 07:38] LABS: Calcium 8.8 mg/dL (8.5-10.1); Potassium 4.1 mmol/L (3.5-5.1)
[2018-09-20 07:40] LABS: BUN/Creatinine Ratio 22.5
[2018-09-20 09:00] VITALS: BP 145/69
--- NOTE | 2018-09-20 11:00 | NUR ---
WOUND CARE NOTE: Wound care in to see patient per wound care request regarding multiple pressure injury that are noted on admission. Bedside nurse took photographs of patient's wounds upon admission for reference. Patient is 72 years old male with admitting diagnosis of Gen Weakness. He has history of CHF, CVA, Dementia and htn. Patient is resting in bed in Rm. 275A. He's awake, alert and answers questions. He appears to be in no pain using Santos Tripathi Faces Pain Scale. He's max assist in turning and repositioning. His Kit score is 12. Skin/wound assessment done with the assistance of another nurse, SHARRI Sorensen. Patient has collagen scar to sacrum (1.8x4cm)that has open area. Wound appears to be old pressure injury that resurface. No family at bedside to give information regarding original stage of sacral pressure injury. No drainage/odor noted. Patient is receiving BID/PRN cleaning and application of Z Guard cream to sacrum. Patient's L heel has 2x1.5cm Unstageable pressure injury. Wound is covered with dark brown hard necrotic tissue. Patient's Rt heel has 3x1.5cm intact DTI. Patient's bilateral heels has intact skin, no drainage/odor noted, left open to air. Repositioned patient for comfort facing his Lt side, redistributed pressure points with pillows. Patient tolerated well. Bed in low position, call martinez within reach, bed alarm on. RECOMMENDATION: BID/PRN cleaning and application of Z Guard cream to sacrum per MD order, Dietary consult, frequent turning and repositioning schedule as condition permits, redistribute pressure points with pillows, elevate heels on pillow, continue monitoring by wound care while patient is hospitalized. Addendum: 09/20/18 at 1343 by Steffi Alejo RN Amended: Links added.
[2018-09-20 13:00] VITALS: BP 148/80
[2018-09-20] MEDS ORDERED: hydrALAZINE HCL 25 MG TAB PO SCH (14:00)
[2018-09-20 17:00] VITALS: BP 152/96
[2018-09-20] MEDS: CARVEDILOL 3.125 MG TAB PO SCH ×2 (18:26→21:37)
[2018-09-20] MEDS: ASPirin-EC 81 mg tab PO SCH (18:27)
[2018-09-20] MEDS: amLODIPine BESYLATE 5 MG TAB PO SCH (18:27)
[2018-09-20] MEDS: ATORVASTATIN 20 MG TAB PO SCH (21:37)
[2018-09-20 22:00] VITALS: BP 144/80
[2018-09-21 05:22] VITALS: BP 157/74
--- NOTE | 2018-09-21 07:26 | NUR ---
Report given to Malika Roberts ,patient is resting no distress.
[2018-09-21 09:00] VITALS: BP 158/91
[2018-09-21] MEDS: CARVEDILOL 3.125 MG TAB PO SCH ×2 (12:00→21:40)
[2018-09-21] MEDS: amLODIPine BESYLATE 5 MG TAB PO SCH (12:00)
[2018-09-21] MEDS: ASPirin-EC 81 mg tab PO SCH (12:00)
[2018-09-21 13:00] VITALS: BP 171/98
[2018-09-21 16:47] VITALS: BP 188/100
--- NOTE | 2018-09-21 18:03 | NUR ---
HIGH BLOOD PRESSURE PATIENT BLOOD PRESSURE 188/[address] ARTHUR. THE PHYSICIAN ORDERED VASOTEC [address] ORDER AND CARRY OUT. WILL CONTINUE TO MONITOR.
[2018-09-21] MEDS ORDERED: ENALAPRILAT 1.25 MG/ML-1ML VIAL IV ONE (18:15)
--- NOTE | 2018-09-21 20:00 | NUR ---
Opening Shift Note Assumed care of patient, awake and alert. No S/S of distress/SOB or pain. On air mattress. Instructed on POC and to call for assist PRN, will continue to monitor for changes Q1hr and PRN.Repositioning done form side to side now in the right side.
[2018-09-21] MEDS: ATORVASTATIN 20 MG TAB PO SCH (21:16)
[2018-09-21] MEDS: DOCUSATE SOD 100 MG CAP PO PRN (21:16)
[2018-09-21 22:00] VITALS: BP 150/87
[2018-09-22 05:08] VITALS: BP 159/85
--- NOTE | 2018-09-22 07:24 | NUR ---
Report given to Malika Norton, patient is resting no distress.
--- NOTE | 2018-09-22 08:30 | NUR ---
Opening Shift Note Assumed care of patient, awake and alert. No S/S of distress/SOB or pain. Instructed on POC and to call for assist PRN, will continue to monitor for changes Q1hr and PRN.
[2018-09-22 09:00] VITALS: BP 155/96
[2018-09-22] MEDS: ASPirin-EC 81 mg tab PO SCH (09:36)
[2018-09-22] MEDS: amLODIPine BESYLATE 5 MG TAB PO SCH (09:37)
[2018-09-22] MEDS: DOCUSATE SOD 100 MG CAP PO PRN (09:37)
[2018-09-22] MEDS: CARVEDILOL 3.125 MG TAB PO SCH ×2 (09:37→22:12)
[2018-09-22 13:00] VITALS: BP 93/48
[2018-09-22 14:30] VITALS: BP 147/82
[2018-09-22 17:00] VITALS: BP 140/79
--- NOTE | 2018-09-22 19:35 | NUR ---
Opening Shift Note Assumed care of patient, awake and alert x2. No S/S of distress/SOB on room air. Reports back pain unable to rate pain. Will administer medication. Patient upper and lower extremities contracted. Alonzo patient and draining. Jas boots on . Sacral dressing C/D/I. Instructed on POC and to call for assist PRN, will continue to monitor.
[2018-09-22 21:43] VITALS: BP 147/79
[2018-09-22] MEDS: ATORVASTATIN 20 MG TAB PO SCH (22:12)
[2018-09-22] MEDS ORDERED: cloNIDine HCL 0.1 MG TAB PO PRN (23:00)
[2018-09-23 01:39] LABS: Albumin 2.3 g/dL (3.4-5.0); Calcium 8.6 mg/dL (8.5-10.1); Potassium 3.7 mmol/L (3.5-5.1)
[2018-09-23 01:51] LABS: BUN/Creatinine Ratio 31.8; Bilirubin, Total 0.7 mg/dL (0.2-1.0); Total Protein 6.7 g/dL (6.4-8.2)
[2018-09-23 05:30] VITALS: BP 130/83
[2018-09-23 08:12] LABS: Basophils # (auto) 0.1 uL; Basophils % (auto) 0.8 % (0.0-2.0); Eosinophils # (auto) 0.1 uL; Eosinophils % (auto) 0.6 % (0.0-7.0); Hematocrit 32.1 % (41.0-53.0); Hemoglobin 10.9 g/dL (13.5-17.5); Lymphocytes # (auto) 1.6 uL; Lymphocytes % (auto) 16.9 % (10.0-50.0); Mean Corpuscular Hemoglobin 29.6 pg (28.0-32.0); Mean Corpuscular Hgb Conc. 33.9 g/dL (32.0-36.0); Mean Corpuscular Volume 87.3 fL (80.0-100.0); Monocytes % (auto) 10.8 % (0.0-12.0); Neutrophils # (auto) 6.7 uL; Neutrophils % (auto) 70.9 % (37.0-80.0); Nucleated Red Blood Cells % 0.1 %; Platelet Count (auto) 320 10^3/uL (140-450); Red Blood Cells 3.68 10^6/uL (4.5-5.90); Red Cell Distribution Width 13.7 % (11.8-14.3); White Blood Cell 9.4 10^3/uL (4.4-10.8)
[2018-09-23 08:34] LABS: Cholesterol 120 mg/dL (< 200); HDL Cholesterol 34 mg/dL (40-59); LDL Cholesterol 76 mg/dL (< 100); Triglycerides 51 mg/dL (< 150)
[2018-09-23 08:44] LABS: Albumin 2.2 g/dL (3.4-5.0); BUN/Creatinine Ratio 28.6; Calcium 8.4 mg/dL (8.5-10.1); Potassium 3.4 mmol/L (3.5-5.1)
[2018-09-23 08:46] LABS: Bilirubin, Total 0.7 mg/dL (0.2-1.0); Total Protein 6.4 g/dL (6.4-8.2)
[2018-09-23 09:00] VITALS: BP 145/85
[2018-09-23] MEDS: ASPirin-EC 81 mg tab PO SCH (09:42)
[2018-09-23] MEDS: amLODIPine BESYLATE 5 MG TAB PO SCH (09:43)
[2018-09-23] MEDS: CARVEDILOL 3.125 MG TAB PO SCH ×2 (09:43→21:21)
[2018-09-23] MEDS: DOCUSATE SOD 100 MG CAP PO PRN (09:47)
[2018-09-23 15:04] VITALS: BP 132/69
[2018-09-23 17:00] VITALS: BP 140/77
--- NOTE | 2018-09-23 19:30 | NUR ---
Opening Shift Note Assumed care of patient, awake and alert. No S/S of distress/SOB or pain. Insructed on POC and to callfor assist PRN, will continue to monitor for changes Q1hr and PRN. Fall and safety precautions in place. Call light within reach.
[2018-09-23] MEDS: ATORVASTATIN 20 MG TAB PO SCH (21:21)
[2018-09-23 22:00] VITALS: BP 123/68
[2018-09-23] MEDS ORDERED: POTASSIUM CHL 20MEQ/100ML 100 ML IV SCH (22:45)
--- NOTE | 2018-09-23 23:44 | NUR ---
SPECIMEN CUP Acknowledged order for stool occult blood. Specimen cup placed at bedside. Patient was educated, he verbalized understanding and agreement. Will continue to monitor
[2018-09-24 04:59] VITALS: BP 156/84
[2018-09-24] MEDS: CARVEDILOL 3.125 MG TAB PO SCH ×2 (09:03→21:41)
[2018-09-24 09:04] VITALS: BP 162/89
[2018-09-24] MEDS: ASPirin-EC 81 mg tab PO SCH (09:04)
[2018-09-24] MEDS: amLODIPine BESYLATE 5 MG TAB PO SCH (09:04)
[2018-09-24 09:31] LABS: Basophils # (auto) 0.1 uL; Basophils % (auto) 1.1 % (0.0-2.0); Eosinophils # (auto) 0.1 uL; Eosinophils % (auto) 0.7 % (0.0-7.0); Hematocrit 33.6 % (41.0-53.0); Hemoglobin 11.4 g/dL (13.5-17.5); Lymphocytes # (auto) 1.5 uL; Lymphocytes % (auto) 14.4 % (10.0-50.0); Mean Corpuscular Hemoglobin 29.5 pg (28.0-32.0); Mean Corpuscular Hgb Conc. 33.9 g/dL (32.0-36.0); Mean Corpuscular Volume 86.9 fL (80.0-100.0); Monocytes # (auto) 1.1 uL; Monocytes % (auto) 10.6 % (0.0-12.0); Neutrophils # (auto) 7.6 uL; Neutrophils % (auto) 73.2 % (37.0-80.0); Platelet Count (auto) 355 10^3/uL (140-450); Red Blood Cells 3.87 10^6/uL (4.5-5.90); Red Cell Distribution Width 14.1 % (11.8-14.3); White Blood Cell 10.3 10^3/uL (4.4-10.8)
[2018-09-24 09:52] LABS: Albumin 2.2 g/dL (3.4-5.0); Calcium 8.4 mg/dL (8.5-10.1); Potassium 3.7 mmol/L (3.5-5.1)
[2018-09-24 09:55] LABS: BUN/Creatinine Ratio 22.4; Bilirubin, Total 0.8 mg/dL (0.2-1.0); Total Protein 6.9 g/dL (6.4-8.2)
--- NOTE | 2018-09-24 11:27 | NUR ---
Nutrition Assessment Notes please see attached link for complete assessment Est. Needs IBW (81 kg): 2104-9150 kcal (25-30 kcal/kgBW), 81-105 gms pro (1.0-1.3 gms/kgBW r/t severe hypoalb). Will continue to monitor pertinent labs and reassess nutrient need prn Addendum: 09/24/18 at [address] Amended: Links added.
[2018-09-24 13:13] VITALS: BP 109/59
--- NOTE | 2018-09-24 14:00 | NUR ---
Dr. Marquez at bedside.
[2018-09-24 16:36] VITALS: BP 140/75
--- NOTE | 2018-09-24 19:30 | NUR ---
Opening Shift Note Assumed care of patient, resting quietly with eyes closed, even and nonlabored breathing. Patient was easily aroused when name is called out. No S/S of distress/SOB or pain. Insructed on POC and to callfor assist PRN, will continue to monitor for changes Q1hr and PRN. MD Choe at bedside. Fall and safety precautions in place. Call light within reach.
[2018-09-24] MEDS: ATORVASTATIN 20 MG TAB PO SCH (21:40)
[2018-09-24] MEDS: DONEPEZIL HYDROCHLORIDE 5 MG TAB PO SCH (21:41)
[2018-09-24] MEDS: DOCUSATE SOD 100 MG CAP PO PRN (21:44)
[2018-09-24 22:02] VITALS: BP 116/68
[2018-09-25 05:37] VITALS: BP 151/86
[2018-09-25 09:23] VITALS: BP 162/87
[2018-09-25] MEDS: CARVEDILOL 3.125 MG TAB PO SCH ×2 (09:39→21:20)
[2018-09-25] MEDS: ASPirin-EC 81 mg tab PO SCH (09:39)
[2018-09-25] MEDS: amLODIPine BESYLATE 5 MG TAB PO SCH (09:40)
[2018-09-25] MEDS: DOCUSATE SOD 100 MG CAP PO PRN (09:43)
[2018-09-25 12:46] VITALS: BP 152/89
[2018-09-25 13:10] VITALS: BP 144/78
--- NOTE | 2018-09-25 14:41 | NUR ---
Called EEG department regarding Dr. Soriano wants to get EEG stat, Tech will come to see patient soon.
--- NOTE | 2018-09-25 15:45 | NUR ---
EEG COMPLETED AT BEDSIDE. SHARRI ALEXANDER.
[2018-09-25 17:00] VITALS: BP 144/75
--- NOTE | 2018-09-25 17:07 | NUR ---
assessment Patient is a 72 year old male who is confused. Per patients Christen prior to admission patient lived home with her and patients olive packer Terry and functioned with their assistance. Patients PCP is Dr Soriano. Patient is on service with [facility]. Patient will need a resumption order on discharge. Christen is refusing SNF. Patient has a hospital bed, wheelchair, and fww, and a cane for home use. Christen verbalized understanding and agreed to discharge plan home. Addendum: 09/25/18 at 1714 by Sudha MCBRIDE Amended: Links added.
--- NOTE | 2018-09-25 19:30 | NUR ---
Opening Shift Note Assumed care of patient, awake and alert. No S/S of distress/SOB or pain. Insructed on POC and to callfor assist PRN, will continue to monitor for changes Q1hr and PRN. MD Choe at bedside. Fall and safety precautions in place. Call light within reach.
[2018-09-25] MEDS: DONEPEZIL HYDROCHLORIDE 5 MG TAB PO SCH (21:19)
[2018-09-25] MEDS: ATORVASTATIN 20 MG TAB PO SCH (21:19)
[2018-09-25 21:30] VITALS: BP 140/70
[2018-09-25] MEDS ORDERED: MAGNESIUM CITRATE SOLUTION 300 ML BTL PO ONE (23:30)
--- NOTE | 2018-09-25 23:30 | NUR ---
MD JERSON Soriano at bedside.
--- NOTE | 2018-09-26 01:30 | NUR ---
MAG CITRATE Administered one time order of mag citrate at this time. Patient drank approximately 250ml from 300ml bottle. Will attempt to administer remaining 50ml at later time. Will continue to monitor
--- NOTE | 2018-09-26 05:00 | NUR ---
STOOL SAMPLE Patient had small, hard bowel movement. Stool sample was obtained and sent to lab via bullet
--- NOTE | 2018-09-26 05:15 | NUR ---
MAG CITRATE Remaining 50ml of mag citrate administered at this time. Patient tolerated well. Will continue to monitor
[2018-09-26 05:45] VITALS: BP 125/70
--- NOTE | 2018-09-26 07:20 | NUR ---
Opening Shift Note Assumed care of patient, patient alert and oriented to person and place. No S/S of distress/SOB or pain. Instructed on POC and to call for assist PRN, will continue to monitor for changes Q1hr and PRN.
[2018-09-26 07:27] LABS: Basophils # (auto) 0.1 uL; Basophils % (auto) 0.9 % (0.0-2.0); Eosinophils # (auto) 0.1 uL; Hematocrit 30.7 % (41.0-53.0); Hemoglobin 10.3 g/dL (13.5-17.5); Lymphocytes # (auto) 1.3 uL; Lymphocytes % (auto) 14.3 % (10.0-50.0); Mean Corpuscular Hemoglobin 29.3 pg (28.0-32.0); Mean Corpuscular Hgb Conc. 33.6 g/dL (32.0-36.0); Mean Corpuscular Volume 87.2 fL (80.0-100.0); Monocytes # (auto) 1.1 uL; Monocytes % (auto) 12.4 % (0.0-12.0); Neutrophils # (auto) 6.6 uL; Neutrophils % (auto) 71.4 % (37.0-80.0); Platelet Count (auto) 364 10^3/uL (140-450); Red Blood Cells 3.53 10^6/uL (4.5-5.90); Red Cell Distribution Width 14.2 % (11.8-14.3); White Blood Cell 9.2 10^3/uL (4.4-10.8)
[2018-09-26 07:41] LABS: Potassium 4.1 mmol/L (3.5-5.1)
[2018-09-26 08:00] VITALS: BP 126/72
[2018-09-26 08:00] LABS: Albumin 2.1 g/dL (3.4-5.0); BUN/Creatinine Ratio 25.4; Bilirubin, Total 0.7 mg/dL (0.2-1.0); Calcium 8.6 mg/dL (8.5-10.1); Total Protein 6.6 g/dL (6.4-8.2)
[2018-09-26 09:00] VITALS: BP 126/72
[2018-09-26] MEDS: ASPirin-EC 81 mg tab PO SCH (09:53)
[2018-09-26] MEDS: CARVEDILOL 3.125 MG TAB PO SCH (09:54)
[2018-09-26] MEDS: amLODIPine BESYLATE 5 MG TAB PO SCH (09:54)
--- NOTE | 2018-09-26 11:21 | NUR ---
Per SS consult received an order for [facility] for PT services. Referral packet was faxed over to [facility] for resumption of services. A office services representative (Ana María) called to advise that they were in receipt of the referral and were accepting patient upon discharge and will start care services within 24-48 hours. Addendum: 09/26/18 at 1128 by KARAN YORK Amended: Links added.
[2018-09-26 12:04] VITALS: BP 125/74
--- NOTE | 2018-09-26 12:24 | NUR ---
GI clearance Dr. Alma botello for GI clearance
--- NOTE | 2018-09-26 15:51 | NUR ---
Spoke with Christen Per , she and and son will pick patient up for discharge around 7:00 PM.
[2018-09-26 16:03] VITALS: BP 125/74
[2018-09-26 16:49] VITALS: BP 121/76
[2018-09-26] MEDS ORDERED: Ensure Enlive Strawberry 8oz Bottle PO SCH (18:00)
[2018-09-26] MEDS ORDERED: Pro-Stat SF 30ml Vanilla PO SCH (18:00)
--- NOTE | 2018-09-26 18:00 | NUR ---
Quinonez catheter dc'd Order to discontinue quinonez catheter. Quinonez dc'd with clean technique following deflation of balloon. Patient tolerated well with no complaints of pain. Continue care.
--- NOTE | 2018-09-26 21:50 | NUR ---
Discharge instructions given as ordered. Encourage to follow up with PMD as instructed. All questions and concerns addressed. Patient verbalized understanding. Medication reconciliation form completed and copy given to patient. IV removed with catheter intact, pressure dressing applied. Telemetry unit returned to [facility]. Patient taken to vehicle via wheelchair with all personal belongings, accompanied by staff and family member. No distress noted at time of departure.
== END 2018-09-26 21:50 | disposition home health service (06) | DRG 64 ==
LOC: ER 19:24 → EDBD 19:24 → TELE 19:25 → TELE-WESTW 09-20 07:50
PROVIDERS: ADMIT Nurse Practitioner Family; ATTEND Specialist
DX: I63.89 Other cerebral infarction (principal); G93.41 Metabolic encephalopathy; E87.0 Hyperosmolality and hypernatremia; E46 Unspecified protein-calorie malnutrition; I69.354 Hemiplegia and hemiparesis following cerebral infarction affecting left non-dominant side; I95.9 Hypotension, unspecified; E86.0 Dehydration; R62.7 Adult failure to thrive; D64.9 Anemia, unspecified; E78.5 Hyperlipidemia, unspecified; E86.1 Hypovolemia; F01.50 Vascular dementia, unspecified severity, without behavioral disturbance, psychotic disturbance, mood disturbance, and anxiety; G30.9 Alzheimer's disease, unspecified; I11.0 Hypertensive heart disease with heart failure; I25.10 Atherosclerotic heart disease of native coronary artery without angina pectoris; I50.9 Heart failure, unspecified; I70.0 Atherosclerosis of aorta; G89.29 Other chronic pain; M19.90 Unspecified osteoarthritis, unspecified site; Z79.82 Long term (current) use of aspirin; Z79.899 Other long term (current) drug therapy; Z82.49 Family history of ischemic heart disease and other diseases of the circulatory system; Z68.20 Body mass index [BMI] 20.0-20.9, adult
CPT/HCPCS: 36415; 51702; 70450; 71045; 80048; 80053; 80061; 81001; 82270; 83605; 83880; 84484; 85025; 87040; 87081; 87086; 93005; 93886; 95819; 96360; 97110; G0378

== ENCOUNTER 2018-12-17 19:51 | Inpatient (IN) | payer MEDICARE, OTHER ==
[~2018-12-17] VITALS: Ht 175.3 cm; Wt 75.6 kg
[~2018-12-17 19:51] MED LIST changes: +LISI-646 PO
[2018-12-17] MEDS ORDERED: cloNIDine HCL 0.1 MG TAB PO ONE (22:00)
[2018-12-17] MEDS ORDERED: hydrALAZINE HCL 20 MG/ML VL IV ONE (23:05)
[2018-12-17 23:57] LABS: Urine Blood TRACE /uL (Negative); Urine Budding Yeast MODERATE /hpf (None Seen); Urine Hyaline Cast FEW /lpf (0 - 2); Urine Mucus FEW (None Seen); Urine Specific Gravity 1.021 (1.001-1.035)
[2018-12-17 23:58] LABS: Urine Bacteria FEW /hpf (None Seen); Urine WBC 20 /hpf (0 - 3)
[2018-12-18 00:08] LABS: Basophils # (auto) 0.1 uL; Basophils % (auto) 0.7 % (0.0-2.0); Eosinophils # (auto) 0.1 uL; Eosinophils % (auto) 0.7 % (0.0-7.0); Hemoglobin 10.6 g/dL (13.5-17.5); Lymphocytes # (auto) 1.1 uL; Lymphocytes % (auto) 10.1 % (10.0-50.0); Mean Corpuscular Hemoglobin 26.3 pg (28.0-32.0); Mean Corpuscular Hgb Conc. 32.1 g/dL (32.0-36.0); Mean Corpuscular Volume 82.1 fL (80.0-100.0); Monocytes # (auto) 0.8 uL; Monocytes % (auto) 7.2 % (0.0-12.0); Neutrophils % (auto) 81.3 % (37.0-80.0); Nucleated Red Blood Cells % 0.1 %; Platelet Count (auto) 241 10^3/uL (140-450); Red Blood Cells 4.03 10^6/uL (4.5-5.90)
[2018-12-18 00:18] LABS: BUN/Creatinine Ratio 31.1; Potassium 3.7 mmol/L (3.5-5.1)
[2018-12-18 00:19] LABS: Bilirubin, Total 0.6 mg/dL (0.2-1.0); Total Protein 6.2 g/dL (6.4-8.2)
[2018-12-18] MEDS ORDERED: ACETAMINOPHEN 325 MG TAB PO PRN ×2 (04:00→06:30)
[2018-12-18] MEDS ORDERED: MORPHINE SULF INJ 2 MG/ML SYRINGE 1ML IV PRN ×3 (04:00→06:30)
[2018-12-18] MEDS ORDERED: NITROGLYCERIN 0.4 MG SL TAB SL PRN ×3 (04:00→06:30)
[2018-12-18] MEDS ORDERED: SOD CHL 0.45% 1,000 ML IV SCH ×2 (04:00→04:30)
[2018-12-18] MEDS ORDERED: PIPERACILLIN-TAZOB 3.375GM 100 ML IV SCH (06:00)
[2018-12-18] MEDS: PIPERACILLIN-TAZOB 3.375GM 100 ML IV SCH ×2 (08:42→16:03)
[2018-12-18] MEDS: SOD CHL 0.45% 1,000 ML IV SCH ×2 (09:08→21:30)
[2018-12-18] MEDS: FUROSEMIDE 20 MG/2 ML VIAL IV SCH (10:00)
[2018-12-18] MEDS ORDERED: ASPirin-EC 81 mg tab PO SCH (10:00)
[2018-12-18] MEDS: LISINOPRIL 20 MG TAB PO SCH (10:00)
[2018-12-18] MEDS ORDERED: NIFEdipine ER 30 MG TAB PO SCH (10:00)
[2018-12-18] MEDS ORDERED: FUROSEMIDE 20 MG/2 ML VIAL IV ONE (10:00)
[2018-12-18] MEDS: CARVEDILOL 3.125 MG TAB PO SCH ×2 (10:00→22:36)
[2018-12-18] MEDS ORDERED: ATORVASTATIN 20 MG TAB PO SCH ×2 (10:00→22:00)
[2018-12-18] MEDS ORDERED: PANTOPRAZOLE 40 MG TAB PO ONE (10:00)
[2018-12-18] MEDS ORDERED: CARVEDILOL 3.125 MG TAB PO SCH (10:00)
[2018-12-18] MEDS: NIFEdipine ER 30 MG TAB PO SCH (10:00)
[2018-12-18] MEDS ORDERED: LISINOPRIL 20 MG TAB PO SCH (10:00)
[2018-12-18 10:15] VITALS: BP 130/65
--- NOTE | 2018-12-18 10:15 | NUR ---
Telemetry admit from ER JENNIFER HA admitted to Telemetry. Patient oriented to Sandy Omer, primary RN, unit, room, bed, and unit policies regarding patient care and visiting hours. Patient is lethargic but arouses to tactile touch and name. Patient is alert X2, to self and surroundings. Tele# 16, sinus rhythm @ 60 bpm. IV to left forearm, 20 gauge, patent and infusing 0.45% NS @ 80 ml/hr. Urethral Alonzo catheter draining clear, yellow urine to gravity. Patient has multiple unstageable pressure ulcers, see wound care notes and pictures. Plan of care discussed with , Christen, via phone, verbalized understanding. Bed locked, in lowest position, call light within reach, will continue to monitor Q 1 hour and PRN. Bed alarm on for patient safety, aspiration and contact isolation precautions in place.
--- NOTE | 2018-12-18 12:40 | NUR ---
WOUND CARE NOTE: Wound care consult received from nursing for multiple pressure ulcers present on admission. Patient is an 73yo male admitted for decubitus ulcer. Patient with a history of chronic pressure injuries, hypertension, CAD, CHF, COPD, UTIs, hypercholesteremia, CVA and depression. Patient is alert and denies pain. Last Kit score is 7. Patient appears contracted in the bilateral lower extremities and is stiff when attempting to reposition. Patient states he prefers to lay on his left side. Per Dr Soriano's H&P, patient has history of stage 3 pressure injuries to rt hip and sacrum and unstageable to lt hip. Upon assessment noted following wounds: left hip unstageable pressure injury measuring 7x7cm covered by thick black eschar; right hip unstageable pressure injury measuring 7x7cm with undermining of 2cm from 1:00-5:00 covered in 20% green slough and 80% black eschar; sacral unstageable pressure injury measuring 4x4cm covered in yellow slough. Bilateral lower extremities with multiple pressure injuries to both feet and ankle to include: right lateral foot unstageable pressure injury measuring 2x2cm; left medial foot unstageable pressure injury measuring 1.5x2cm; right ankle stage 2 pressure injury measuring 1x2cm. RECOMMENDATIONS: Dietary consult; turn q2hrs; specialty bed; Nursing to cleanse all wounds with wound cleanser and pat dry, cover right hip, left hip and OPTIFOAM GENTLE dressing and change EOD/PRN saturation, apply THERAHONEY GEL to sacrum and cover with OPTIFOAM GENTLE and change EOD/PRN saturation/soiling; paint bilateral lower extremity/foot ulcers with betadine and leave open to air; wound care team to follow. Addendum: 12/18/18 at 1821 by JOHN FORDE RN Amended: Links added.
[2018-12-18 13:00] VITALS: BP 100/64
[2018-12-18] MEDS: ASPirin-EC 81 mg tab PO SCH (14:52)
[2018-12-18] MEDS: PANTOPRAZOLE 40 MG TAB PO SCH (14:52)
[2018-12-18] MEDS: ASCORBIC ACID 500 MG TAB PO SCH ×2 (14:52→22:36)
[2018-12-18] MEDS: ZINC SULFATE 220mg CAP or TAB PO SCH (14:52)
[2018-12-18] MEDS ORDERED: VANCOMYCIN PER PHARMACY 0 MG IV SCH (15:45)
[2018-12-18 17:00] VITALS: BP 105/55
[2018-12-18] MEDS ORDERED: VANCOMYCIN 750mg/250ml 250 ML IV SCH (17:00)
[2018-12-18] MEDS: Ensure Pudding Vanilla 4 oz Cup PO SCH (18:00)
--- NOTE | 2018-12-18 18:48 | NUR ---
IV removal IV DC'd to left forearm due to patient pulling it out, with clean sterile technique, catheter fully intact. Pressure dressing applied to site. Patient tolerated well. IV insertion IV access obtained, via clean technique by inserting 22 gauge catheter at right upper arm. IV secured properly. No trauma to site. Patient tolerated procedure well.
--- NOTE | 2018-12-18 19:09 | NUR ---
Care endorsed to SHARRI Olivo, night nurse.
[2018-12-18] MEDS: VANCOMYCIN 750mg/250ml 250 ML IV SCH (20:56)
[2018-12-18 21:23] VITALS: BP 160/98
[2018-12-18] MEDS: ATORVASTATIN 20 MG TAB PO SCH (22:30)
[2018-12-19] MEDS: VANCOMYCIN 750mg/250ml 250 ML IV SCH ×2 (00:37→20:11)
[2018-12-19] MEDS: PIPERACILLIN-TAZOB 3.375GM 100 ML IV SCH ×3 (00:37→15:39)
[2018-12-19 04:32] VITALS: BP 148/81
--- NOTE | 2018-12-19 05:52 | NUR ---
PT BEING TURNED DILIGENTLY EVERY TWO HOURS;MITTENS ON TO PREVENT PT PULLING OUT HIS BRAY;SITTER AT BEDSIDE.
[2018-12-19 06:10] LABS: Basophils # (auto) 0 uL; Basophils % (auto) 0.4 % (0.0-2.0); Eosinophils # (auto) 0 uL; Eosinophils % (auto) 0.2 % (0.0-7.0); Hematocrit 31.5 % (41.0-53.0); Hemoglobin 10.3 g/dL (13.5-17.5); Lymphocytes # (auto) 1.2 uL; Lymphocytes % (auto) 12.8 % (10.0-50.0); Mean Corpuscular Hemoglobin 26.6 pg (28.0-32.0); Mean Corpuscular Hgb Conc. 32.7 g/dL (32.0-36.0); Mean Corpuscular Volume 81.4 fL (80.0-100.0); Monocytes # (auto) 0.6 uL; Monocytes % (auto) 6.2 % (0.0-12.0); Neutrophils # (auto) 7.3 uL; Neutrophils % (auto) 80.4 % (37.0-80.0); Platelet Count (auto) 299 10^3/uL (140-450); Red Blood Cells 3.87 10^6/uL (4.5-5.90); Red Cell Distribution Width 18.8 % (11.8-14.3)
[2018-12-19 06:23] LABS: Albumin 2.1 g/dL (3.4-5.0); Potassium 3.6 mmol/L (3.5-5.1)
[2018-12-19 06:28] LABS: Folate (Folic Acid) 5.42 ng/mL (5.38-24)
[2018-12-19 06:32] LABS: BUN/Creatinine Ratio 25.7; Bilirubin, Total 0.8 mg/dL (0.2-1.0); Calcium 8.2 mg/dL (8.5-10.1); Total Protein 6.4 g/dL (6.4-8.2)
--- NOTE | 2018-12-19 07:30 | NUR ---
Opening note Patient care assumed from cnc machinist 2nd shift nurse. Patient alert and oriented x2. Bed in lowest position, No signs of distress noted. Patient turned on to right side and Optifoam dressing placed on left ankle. Patient informed on plan of care. Sitter at bedside. Bed in lowest position and side rails upX2. Call light in reach. Will continue to monitor.
[2018-12-19 08:24] VITALS: BP 144/79
[2018-12-19] MEDS: Ensure Pudding Vanilla 4 oz Cup PO SCH ×2 (10:06→17:50)
[2018-12-19] MEDS: FUROSEMIDE 20 MG/2 ML VIAL IV SCH (11:30)
[2018-12-19] MEDS: ASPirin-EC 81 mg tab PO SCH (11:31)
[2018-12-19] MEDS: CARVEDILOL 3.125 MG TAB PO SCH ×2 (11:31→21:39)
[2018-12-19] MEDS: ASCORBIC ACID 500 MG TAB PO SCH ×2 (11:32→21:35)
[2018-12-19] MEDS: LISINOPRIL 20 MG TAB PO SCH (11:32)
[2018-12-19] MEDS: NIFEdipine ER 30 MG TAB PO SCH (11:33)
[2018-12-19] MEDS: ZINC SULFATE 220mg CAP or TAB PO SCH (11:39)
[2018-12-19] MEDS: PANTOPRAZOLE 40 MG TAB PO SCH (11:39)
--- NOTE | 2018-12-19 12:01 | NUR ---
NUTRITION CONSULT/ASSESSMENT NOTES Please refer to link notes of nutrition screen form filed under the intervention section of the plan of care for further details. Est. Needs: 1850 kcal to 2200 kcal (25-30 kcal/kgBW), 73 gms to 102 gms pro (1.0-1.4 gms/kgBW d/t severe hypoalbuminemia, wound healing). Will continue to monitor pertinent labs and reassess nutrient need prn Thank you for this consult. Addendum: 12/19/18 at [address] Amended: Links added.
[2018-12-19 12:22] VITALS: BP 139/84
[2018-12-19 17:11] VITALS: BP 109/51
[2018-12-19] MEDS ORDERED: SOD CHL 0.45% 1,000 ML IV SCH (17:30)
--- NOTE | 2018-12-19 19:17 | NUR ---
Care endorsed to SHARRI Chaudhary, night nurse.
--- NOTE | 2018-12-19 20:00 | NUR ---
Opening Shift Note Assumed care of patient, awake and alert and oriented x 3, follows direction. On room air with even and unlabored respiration, no S/S of distress or SOB. Alonzo secured and intact, draining to gravity, no kinks. IV intact and patent to right upper arm. Patient denies pain. Foam/jimena boots on to bilateral legs, on specialty air mattress. Patient turned with max assist, will continue to turn q2hrs. Bed low locked position with side rails up x 3 and call light within reach, sitter at bedside. Instructed on POC and to callfor assist PRN, will continue to monitor for changes Q1hr and PRN.
[2018-12-19] MEDS: ATORVASTATIN 20 MG TAB PO SCH (21:38)
[2018-12-19 22:00] VITALS: BP 125/69
[2018-12-20 05:00] VITALS: BP 133/81
--- NOTE | 2018-12-20 07:00 | NUR ---
Closing Note patient resting in bed with even and unlabored respirations, no s/s of distress. Sitter at bedside. Endorsed care to day shift RN
--- NOTE | 2018-12-20 07:45 | NUR ---
Opening Shift Note Assumed care of patient, awake and alert and oriented x 3, follows direction. On room air with even and unlabored respiration, no S/S of distress or SOB. Alonzo secured and intact, draining to gravity, no kinks. IV intact and patent to right upper arm. Patient denies pain. Foam/jimena boots on to bilateral legs, on specialty air mattress. Patient turned with max assist, will continue to turn q2hrs. Bed low locked position with side rails up x 3 and call light within reach, sitter at bedside. Instructed on POC and to call for assist PRN, will continue to monitor for changes Q1hr and PRN.
[2018-12-20] MEDS: VANCOMYCIN 750mg/250ml 250 ML IV SCH (08:37)
[2018-12-20] MEDS: PIPERACILLIN-TAZOB 3.375GM 100 ML IV SCH ×2 (08:37)
[2018-12-20] MEDS: Ensure Pudding Vanilla 4 oz Cup PO SCH (08:38)
[2018-12-20 09:06] VITALS: BP 115/54
[2018-12-20] MEDS: FUROSEMIDE 20 MG/2 ML VIAL IV SCH (10:20)
[2018-12-20] MEDS: PANTOPRAZOLE 40 MG TAB PO SCH (10:21)
[2018-12-20] MEDS: CARVEDILOL 3.125 MG TAB PO SCH (10:21)
[2018-12-20] MEDS: ASPirin-EC 81 mg tab PO SCH (10:21)
[2018-12-20] MEDS: ZINC SULFATE 220mg CAP or TAB PO SCH (10:22)
[2018-12-20] MEDS: LISINOPRIL 20 MG TAB PO SCH (10:22)
[2018-12-20] MEDS: ASCORBIC ACID 500 MG TAB PO SCH (10:22)
[2018-12-20] MEDS: NIFEdipine ER 30 MG TAB PO SCH (10:22)
--- NOTE | 2018-12-20 11:15 | NUR ---
MD ROUNDS DR ARTHUR UPDATING PRIMARY RN ON PATIENT STATUS. ALL QUESTIONS/CONCERNS ANSWERED.
--- NOTE | 2018-12-20 11:30 | NUR ---
[facility] FAXED FACE SHEET TO SHANICE GARCIA SUP, AT [facility] FOR PATIENT TRANSFER
--- NOTE | 2018-12-20 11:45 | NUR ---
[facility] PHONE CALL SHANICE GARCIATANK TRUCK OPERATOR, CALLED RE: PATIENT TRANSFER. BED ASSIGNMENT 105A TO BINH HARRELL .
[2018-12-20] MEDS ORDERED: PANT40T PO (12:57)
[2018-12-20] MEDS ORDERED: NUTRMIS PO (12:57)
[2018-12-20] MEDS ORDERED: ASCO500T11 PO (12:57)
[2018-12-20] MEDS ORDERED: ZIN220C PO (12:57)
[2018-12-20] MEDS ORDERED: ASP81EC PO (12:57)
[2018-12-20] MEDS ORDERED: NITR0.4S29 SL (12:57)
[2018-12-20] MEDS ORDERED: ACE325T PO (12:57)
[2018-12-20] MEDS ORDERED: ATOR20TA50 PO (12:57)
[2018-12-20] MEDS ORDERED: NIFE30TA76 PO (12:57)
[2018-12-20] MEDS ORDERED: FUR20I IV (12:57)
[2018-12-20] MEDS ORDERED: LISI-646 PO (12:57)
[2018-12-20 13:23] VITALS: BP 122/63
[2018-12-20 13:51] VITALS: BP 122/63
--- NOTE | 2018-12-20 14:07 | NUR ---
TRANSFER faxed transfer packet to [facility] and spoke to Luz in senior data warehouse architect office. Luz stated [facility] RN Luz aware of transfer and has been given a rm # for this pt at [facility].
--- NOTE | 2018-12-20 14:10 | NUR ---
CALLED FAMILY CALLED RADHA AT RE: PATIENT TRANSFER. NO ANSWER. NO VOICEMAIL SET UP. WILL TRY AGAIN
--- NOTE | 2018-12-20 14:10 | NUR ---
HATCHERY HELPER ITA HATCHERY HELPER, CALLED RE: PATIENT TRANSFER WITH [facility]. 1700 PICKUP TIME.
--- NOTE | 2018-12-20 14:30 | NUR ---
FAMILY CALLED , RADHA, CALLED RE: PATIENT STATUS. UPDATED RADHA. ANSWERED ALL QUESTIONS/CONCERNS
--- NOTE | 2018-12-20 14:33 | NUR ---
transfer: [facility] is scheduled to supervisor picking crew pt at 1600 hrs tentatively. I have given [facility] Dr[facility] Soriano as accepting MD and rm 105a . I have also completed and faxed over [facility] form to [facility].
--- NOTE | 2018-12-20 14:35 | NUR ---
REPORT CALLED REPORT TO SHARRI PURCELL, AT [facility] . ALL QUESTIONS/CONCERNS ANSWERED
[2018-12-20 16:20] VITALS: BP 134/73
--- NOTE | 2018-12-20 16:30 | NUR ---
PHONE CALL RADHA, PRODUCT SUPPORT SALES REPRESENTATIVE, FROM [facility] CALLED RE: PATIENT IS NOW BEING ADMITTED TO ROOM 202A, WITH RNBRET.
--- NOTE | 2018-12-20 16:31 | NUR ---
REPORT CALLED REPORT TO SHARRI QUEEN, AT [facility] . ALL QUESTIONS/CONCERNS ANSWERED
--- NOTE | 2018-12-20 16:41 | NUR ---
FAMILY CALLED CALLED JORGE, , RE: ROOM ASSIGNENT CHANGE. PATIENT BEING TRANSPORTED TO [facility] TO ROOM 202A TO BRET HARRELL
--- NOTE | 2018-12-20 16:50 | NUR ---
TRANSFER [facility]
--- NOTE | 2018-12-20 16:57 | NUR ---
Transfer instructions given as ordered. All questions and concerns addressed. Telemetry unit returned to ICU. Report given to at Carley, RN at [facility]. Patient being transferred to room 202A. ,Christen, notified of transfer. Patient transported by [facility] with all personal belongings. No distress noted at time of departure.
== END 2018-12-20 16:59 | disposition short-term general hospital (02) | DRG 592 ==
LOC: EDBD 19:51 → ER 19:54 → TELE 19:55 → TELE-EAST 12-18 09:49
PROVIDERS: ADMIT Nurse Practitioner; ATTEND Internal Medicine
DX: L89.893 Pressure ulcer of other site, stage 3 (principal); E43 Unspecified severe protein-calorie malnutrition; G92 Toxic encephalopathy; N39.0 Urinary tract infection, site not specified; L89.150 Pressure ulcer of sacral region, unstageable; L89.220 Pressure ulcer of left hip, unstageable; L89.310 Pressure ulcer of right buttock, unstageable; F03.90 Unspecified dementia, unspecified severity, without behavioral disturbance, psychotic disturbance, mood disturbance, and anxiety; E86.0 Dehydration; L89.512 Pressure ulcer of right ankle, stage 2; I11.0 Hypertensive heart disease with heart failure; I25.10 Atherosclerotic heart disease of native coronary artery without angina pectoris; I25.5 Ischemic cardiomyopathy; I50.9 Heart failure, unspecified; E86.1 Hypovolemia; M17.0 Bilateral primary osteoarthritis of knee; M16.0 Bilateral primary osteoarthritis of hip; M24.562 Contracture, left knee; M24.561 Contracture, right knee; E78.5 Hyperlipidemia, unspecified; F32.9 Major depressive disorder, single episode, unspecified; E78.00 Pure hypercholesterolemia, unspecified; J44.9 Chronic obstructive pulmonary disease, unspecified; Z68.24 Body mass index [BMI] 24.0-24.9, adult; I69.320 Aphasia following cerebral infarction; Z74.01 Bed confinement status; Z82.49 Family history of ischemic heart disease and other diseases of the circulatory system; Z87.440 Personal history of urinary (tract) infections
CPT/HCPCS: 36415; 51702; 80053; 80061; 80202; 81001; 82607; 82746; 83036; 85025; 87040; 87077; 87081; 87186; 87205; 96361; 96374; G0378; J2543